=== PATIENT | male | born 2000 | race Caucasian/White ===

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

== ENCOUNTER → 2022-03-24 | Outpatient (CLI) | payer BC, SELFPAY ==
[2022-03-24 15:59] LABS: Pathologist Comment May follow
[2022-03-24 16:39] LABS: RBC /Synovial Fluid 2.831 10^6/uL (0); Synovial Fld Mononuclear WBC # 2.506 10^3/ul; Synovial Fld Mononuclear WBC % 70.8 %; Synovial Fld Polynuclear WBC # 1.037 10^3/uL; Synovial Fld Polynuclear WBC % 29.2 %
[2022-03-24 16:42] LABS: AUTO B FLUID DILUENT BKGD CT WBC <0.1 RBC <0.01 (W<.1,R<.01); Appearance /Synovial Fluid Turbid (CLEAR); Color / Synovial Fluid Red (Pale Yellow); Source- Body Fluid SYNOVIAL
[2022-03-24 17:34] LABS: Source / Synovial Fluid LEFT KNEE
[2022-03-24 17:41] LABS: Lymph 28 %; Monocyte /Synovial Fluid 38 %; Neutrophil 34 % (0-25)
[2022-03-24 17:42] LABS: Body Fluid QC Type(s) BF4Q,BF5Q
[2022-03-26 07:19] LABS: Pathologist Review Reviewed
== END | disposition home or self-care (01) ==
LOC: LABSPEC 15:51
PROVIDERS: PCP Family Medicine; Visit Provider Physician Assistant Surgical
DX: M25.562 Pain in left knee (principal)
CPT/HCPCS: 87015; 87070; 87075; 87101; 87116; 87205; 87206; 89050; 89051; 89060

== ENCOUNTER → 2022-05-31 | Outpatient (CLI) | payer BC, SELFPAY ==
[2022-05-31 08:17] LABS: Erythrocyte Sedimentation Rate 5 mm/hr (0-20)
== END | disposition home or self-care (01) ==
LOC: LAB 07:48
PROVIDERS: PCP Family Medicine; Referring Provider Internal Medicine Rheumatology; Visit Provider Internal Medicine Rheumatology
DX: M79.18 Myalgia, other site (principal)
CPT/HCPCS: 36415; 85652

== ENCOUNTER → 2022-12-11 | Outpatient (CLI) | payer BC, SELFPAY ==
[2022-12-11 12:57] LABS: AST(SGOT) 20 U/L (15-37); Alanine Aminotransfer ALT/SGPT 31 U/L (16-61); Albumin, Serum 3.9 g/dL (3.2-5.0); Alkaline Phosphatase 58 U/L (45-117); Anion Gap 4 (5-15); BUN 17 mg/dL (7-18); BUN/Creat Ratio 18.9 RATIO (10-20); Calcium,Total 9.2 mg/dL (8.5-10.1); Chloride 108 mmol/L (98-107); Cholesterol 155 mg/dL (200); EST Glomerular Filtration Rate 112 mL/min (>60); Est Glom Filt Rate - Afr Amer 136 mL/min (>60); Globulin 3.8 g/dL (2.2-4.2); Glucose 98 mg/dL (74-106); High Density Lipoprotein 38 mg/dL; Potassium 4.1 mmol/L (3.5-5.1); Protein, Total 7.7 g/dL (6.4-8.2); Sodium Level 141 mmol/L (136-145); Triglycerides 64 mg/dL; Very Low Density Lipoprotein 13 mg/dL (5-40)
== END | disposition home or self-care (01) ==
PROVIDERS: PCP Family Medicine; Referring Provider Family Medicine; Visit Provider Family Medicine
DX: Z00.00 Encounter for general adult medical examination without abnormal findings (principal)
CPT/HCPCS: 36415; 80053; 80061; 83036

== ENCOUNTER → 2023-10-27 | Outpatient (CLI) | payer BC, SELFPAY ==
--- OUTSIDE RECORDS SUMMARY | 2023-10-27 08:45 | XMS RPT_ITS | CCD ---
Author Name Unknown Address [address] [place] [address] Organization [facility] Care Team Providers Care Director Of Automation Name Role Phone Unknown, Referring Provider Unavailable Unav ailable Kiet TAYLOR Attending Unavailable Kiet TAYLOR Referring Unavailable AICHA HIGHTOWER Primary Care Unavailable AICHA HIGHTOWER Primary Care Unavailable SELF, SELF Referring Unavailable Kiet TAYLOR Attending Unavailable Aicha Hightower DO Primary Care Provider Medications Current Medications Medication Drug Class(es) Dates Sig (Normalized) Sig (Original) 24 hr amphetamine aspartate 7.5 mg / amphetamine sulfate 7.5 mg / dextroamphetamine saccharate 7.5 mg / dextroamphetamine sulfate 7.5 mg extended release oral capsule (2 sources) Central Nervous System Stimulant Start: 03-25-2021 take 1 capsule by mouth once daily in the morning Adderall XR 30 MG Cap SR 24HR take 1 capsule by mouth every morning if needed 0 03/25/2021 Active Problems Active Problems Problem Classification Problem Date Documented Da te Episodic/Chronic Other non-traumatic joint disorders (4 sources) Hip pain; Translations: [Pain in joint, pelvic region and thigh] Episodic Past or Other Problems Problem Classification Problem Date Documented Da te Episodic/Chronic Other non-traumatic joint disorders (2 sources) Pain in right hip joint; Translations: [Pain in right hip] Episodic Results Test Name Value Interpretation Reference Range Facil ity Vital Signs Date Time Vital Sign Value Performing Clinician Faci lity 04-09-2021 11:11-0400 Body height 167.6 cm Kiet Taylor MD Work Phone: [facility] 04-09-2021 11:11-0400 Body mass index (BMI) [Ratio] 25.34 kg/m2 Kiet Taylor MD Work Phone: [facility] 04-09-2021 11: Body weight 71.22 kg Kiet Taylor MD Work Phone: [facility] Encounters Encounter Date Encounter Type Care Provider Facility Start: 04-09-2021 ambulatory Kiet TAYLOR Faci lity:[facility] Start: 04-09-2021 End: 04-09-2021 Subsequent hospital visit by physician Kiet Taylor MD Work Phone: [facility] [place] Procedures Date Procedure Procedure Detail Performing Clinician Start: 04-09-2021 Radex hip unilateral with pelvis 2-3 views Kiet Taylor MD Work Phone: Plan of Treatment Date Care Activity Detail Author Start: 05-15-2021 Influenza vaccination INFLUENZA VACC INE (#1) [facility] Start: 03-22-2021 NPV, Provider: Rashard Dinero, Status: Pen, Time: 10:00 AM NPV, Provider: Rashard Dinero, Status: Pen, Time: 10:00 AM YH-Qkyeqpmmnbyx-Eck well 5100 Work Phone: Start: 2020 Third diphtheria, te tanus and acellular pertussis (DTaP) vaccination TDAP (ADULT) [facility] Start: 2019 Tetanus vaccination TETANUS [facility] Start: 2016 HIV screening HIV SCREENING DISCUSSION [facility] Start: 2013 COVID-19 VACCINE (1) COVID-19 VACCIN E (1) [facility] Start: 2012 Vaccination for rick n papillomavirus HPV VACCINE ADOL (1 - Male 2-dose series) [facility] Start: 2001 Hepatitis C antibody , confirmatory test HEPATITIS C VIRUS SCREENING [facility] Immunizations Immunization Date Immunization Notes Care Provider Fa cility 07-14-2020 Influenza, injectabl e, Madin Tricia Canine Kidney, preservative free, quadrivalent Rashard Dinero MD Work Phone: CS-Mvgmgtqegaqm-Ep lwell 5100 Work Phone: 07-14-2020 pneumococcal polysaccharide vaccine, 23 valent Rashard Dinero MD Work Phone: SV-Ztyjafyxcten-Al lwell 5100 Work Phone: 12-28-2018 hepatitis A vaccine, pediatric/adolescent dosage, 2 dose schedule Rashard Dinero MD Work Phone: AC-Yypdhglbnyub-Qu lwell 5100 Work Phone: 12-28-2018 Human Papillomavirus 9-valent vaccine Rashard Dinero MD Work Phone: CC-Agevuvyptcwb-Rm lwell 5100 Work Phone: 12-28-2018 meningococcal B vacc ine, recombinant, OMV, adjuvanted Rasahrd Dinero MD Work Phone: XD-Vwnrbszxujmi-Na lwell 5100 Work Phone: 07-29-2018 influenza, injectabl e, quadrivalent, preservative free Rashard Dinero MD Work Phone: SO-Ktvdyfcpwuox-Io lwell 5100 Work Phone: 03-11-2018 hepatitis A vaccine, pediatric/adolescent dosage, 2 dose schedule Rashard Dinero MD Work Phone: FR-Oqidxlfffaci-Dh lwell 5100 Work Phone: 03-11-2018 Human Papillomavirus 9-valent vaccine Rashard Dinero MD Work Phone: GT-Wlsdlfqqkcmf-Yq lwell 5100 Work Phone: 03-11-2018 meningococcal polysaccharide (groups A, C, Y and W-135) diphtheria toxoid conjugate vaccine (MCV4P) Rashard Dinero MD Work Phone: UK-Blvtlsqnwfoh-Lg lwell 5100 Work Phone: 06-28-2016 influenza, injectabl e, quadrivalent, preservative free Rashard Dinero MD Work Phone: ND-Fexlogffvhem-Tx lwell 5100 Work Phone: 07-24-2015 influenza, injectabl e, quadrivalent, preservative free Rashard Dinero MD Work Phone: GL-Mxumrbnrffja-Np lwell 5100 Work Phone: 07-24-2015 pneumococcal polysaccharide vaccine, 23 valent Rashard Dinero MD Work Phone: GX-Uumynoxuffkh-Ih lwell 5100 Work Phone: 06-16-2013 influenza, seasonal, injectable Rashard Dinero MD Work Phone: OR-Eoyzydrrqzbv-Od lwell 5100 Work Phone: 05-31-2012 influenza virus vacc ine, live, attenuated, for intranasal use Rashard Dinero MD Work Phone: PK-Oekjxmlbbwdu-Wl lwell 5100 Work Phone: 05-31-2012 meningococcal polysaccharide (groups A, C, Y and W-135) diphtheria toxoid conjugate vaccine (MCV4P) Rashard Dinero MD Work Phone: WS-Kcpnjfwinnem-Yd lwell 5100 Work Phone: 05-31-2012 tetanus toxoid, redu yen diphtheria toxoid, and acellular pertussis vaccine, adsorbed Rashard Dinero MD Work Phone: YC-Pehjurfkdctf-Vu lwell 5100 Work Phone: 07-14-2011 influenza virus vacc ine, live, attenuated, for intranasal use Rashard Dinero MD Work Phone: VW-Tiiigkspdrfp-Tr lwell 5100 Work Phone: 06-10-2010 influenza virus vacc ine, live, attenuated, for intranasal use Rashard Dinero MD Work Phone: QK-Bmmmieahscqg-Su lwell 5100 Work Phone: 06-11-2006 varicella virus vaccine Robe rt Florian Dinero MD Work Phone: IF-Phxclezttlks-Rv lwell 5100 Work Phone: 05-22-2005 diphtheria, tetanus toxoids and acellular pertussis vaccine, unspecified formulation Rashard Dinero MD Work Phone: XD-Znvmjvvkbkst-Cc lwell 5100 Work Phone: 05-22-2005 measles, mumps and rubella virus vaccine Rashard Dinero MD Work Phone: UC-Nfsobzgmbdut-Ko lwell 5100 Work Phone: 05-22-2005 poliovirus vaccine, inactivated Rashard Dinero MD Work Phone: BJ-Wscuabiicgyq-Mg lwell 5100 Work Phone: 03-29-2003 pneumococcal conjuga te vaccine, 7 valent Rashard Dinero MD Work Phone: VD-Hxynyqmzfbpt-Ev lwell 5100 Work Phone: 09-29-2002 influenza virus vacc ine, whole virus Rashard Dinero MD Work Phone: IC-Sorfkegecvop-Kz lwell 5100 Work Phone: 06-29-2002 diphtheria, tetanus toxoids and acellular pertussis vaccine, unspecified formulation Rashard Dinero MD Work Phone: PS-Ulclissbpdxe-Qb lwell 5100 Work Phone: 06-29-2002 varicella virus vaccine Eric Dinero MD Work Phone: KO-Vzjnsafulidk-Uz lwell 5100 Work Phone: 06-23-2002 haemophilus influenz ae type b vaccine, PRP-T conjugate Rashard Dinero MD Work Phone: RL-Srvgfpajxbtz-Gd lwell 5100 Work Phone: 03-29-2002 hepatitis B vaccine, pediatric or pediatric/adolescent dosage Rashard Dinero MD Work Phone: MH-Zczhmbrzlnmy-Fq lwell 5100 Work Phone: 03-29-2002 measles, mumps and rubella virus vaccine Rashard Dinero MD Work Phone: UI-Dchiexzlfclg-Vx lwell 5100 Work Phone: 2001 poliovirus vaccine, inactivated Rashard Dinero MD Work Phone: ZY-Aqlnscboduxe-Ob lwell 5100 Work Phone: 2001 diphtheria, tetanus toxoids and acellular pertussis vaccine, unspecified formulation Rashard Dinero MD Work Phone: NO-Pearfgtopgtn-Ld lwell 5100 Work Phone: 2001 haemophilus influenz ae type b vaccine, PRP-T conjugate Rashard Dinero MD Work Phone: XG-Esfqgtzodlxq-Ie lwell 5100 Work Phone: 2001 pneumococcal conjuga te vaccine, 7 valent Rashard Dinero MD Work Phone: AR-Njzagevopmya-Ih lwell 5100 Work Phone: 2001 diphtheria, tetanus toxoids and acellular pertussis vaccine, unspecified formulation Rashard Dinero MD Work Phone: BW-Ibupxofilgfu-Hm lwell 5100 Work Phone: 2001 haemophilus influenz ae type b vaccine, PRP-T conjugate Rashard Dinero MD Work Phone: RA-Rppjljpsyaih-Nj lwell 5100 Work Phone: 2001 pneumococcal conjuga te vaccine, 7 valent Rashard Dinero MD Work Phone: ZL-Dpciyentlzvz-Xm lwell 5100 Work Phone: 2001 poliovirus vaccine, inactivated Rashard Dinero MD Work Phone: HN-Eqsbxuuoahnk-Ff lwell 5100 Work Phone: 2001 diphtheria, tetanus toxoids and acellular pertussis vaccine, unspecified formulation Rashard Dinero MD Work Phone: XY-Kaufgndhmdwv-Ro lwell 5100 Work Phone: 2001 haemophilus influenz ae type b vaccine, PRP-T conjugate Rashard Dinero MD Work Phone: IS-Dmiavrezyorw-Eb lwell 5100 Work Phone: 2001 hepatitis B vaccine, pediatric or pediatric/adolescent dosage Rashard Dinero MD Work Phone: SS-Yjxkitmvrvvq-Zz lwell 5100 Work Phone: 2001 pneumococcal conjuga te vaccine, 7 valent Rashard Dinero MD Work Phone: OI-Opudgxwmtfut-Pa lwell 5100 Work Phone: 2001 poliovirus vaccine, inactivated Rashard Dinero MD Work Phone: GG-Esykqblnwnvf-Mb lwell 5100 Work Phone: 2001 hepatitis B vaccine, pediatric or pediatric/adolescent dosage Rashard Dinero MD Work Phone: TN-Dngrjxwzatfe-Dv lwell 5100 Work Phone: Payers Date Payer Category Payer Unknown [id number] 2005 Unknown KAROLINE RAMEY O PPO POS [id number] 2005-Present [address] [place] [address] [id number] 2001 Unknown [id number] 2001 Unknown [id number] Unknown SHERRIEM Social History Date Type Detail Facility Start: 04-09-2021 Tobacco smoking stat us NHIS Never smoker [facility] Start: 04-09-2021 Tobacco use and exposure Never used [facility] Start: 04-09-2021 Alcohol intake Ex-drinker (finding) [facility] Start: 2001 Sex Assigned At Not on file O [facility] Exposure to SARS-CoV -2 (event) Not sure [facility] History of Present illness Narrative 04-09-2021 Kiet Taylor MD - 04/09/2021 10:40 AM Zaid Bae PA-C - 04/09/2021 10:40 AM EDSachi Miller LPN - 04/09/2021 10:40 AM EDT Note Date & Type Note Facility 04-09-2021 History of Present illness Narrative I have seen and evaluated the patient myself and agree with above assessment and plan from [facility] and edits as needed, has a chronic leg length discrepancy with 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 Refer [facility] bambi discuss and will call office to review further, discussed case with Dr Bar LIRIANO as well to confirm no plans for acetab osteotomy. CHIEF COMPLAINT Chief Complaint Patient presents with Right Hip - Pain Right hip pain for many years. Known leg length discrepancy. 6 months ago has gotten shoes to help correct this. Still with off/on lateral hip pain. Has completed PT in the past. HISTORY OF PRESENT ILLNESS Howard is a pleasant 21 y.o. male who presents with his mother today for evaluation of right hip. He is complaining of pain. The symptoms have been present for 6 month(s). The problem was a(n) insidious onset. The patient did have a specific injury/trauma. Patient noted slip and fall in winter which is when pain started. 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 Hardware has been removed. The pain is constant, moderate. The patient describes the pain as aching and throbbing. Pain is located deep and laterally. The patient has had physical therapy. The patient has not had injections in the hip. The patient has had prior hip or back surgery. Noted above. The following worsen the problem: Walking, running, sitting. The following improve the problem: Rest, APAP, NSAIDs. Numbness/tingling/focal weakness in the lower extremities no Nighttime pain no Mechanical symptoms of popping/locking/catching no Past Medical History: Diagnosis Date ADHD Autism No past surgical history on file. No Known Allergies Outpatient Medications Prior to Visit Medication Sig Dispense Refill Adderall XR 30 MG Cap SR 24HR take 1 capsule by mouth every morning if needed No facility-administered medications prior to visit. Social History Socioeconomic History Marital status: Single Spouse name: Not on file Number of children: Not on file Years of education: Not on file Highest education level: Not on file Occupational History Not on file Tobacco Use Smoking status: Never Smoker Smokeless tobacco: Never Used Vaping Use Vaping Use: Never used Substance and Sexual Activity Alcohol use: Not Currently Drug use: Not Currently Sexual activity: Not on file Other Topics Concern Not on file Social History Narrative Not on file Social Determinants of Health Financial Resource Strain: Difficulty of Paying Living Expenses: Food Insecurity: Worried About Running Out of Food in the Last Year: Ran Out of Food in the Last Year: Transportation Needs: Lack of Transportation (Medical): Lack of Transportation (Non-Medical): Physical Activity: Days of Exercise per Week: Minutes of Exercise per Session: Stress: Feeling of Stress : Social Connections: Frequency of Communication with Friends and Family: Frequency of Social Gatherings with Friends and Family: Attends Gn[employer] Services: Active Member of Clubs or Organizations: Attends Club or Organization Meetings: Marital Status: Intimate Partner Violence: Fear of Current or Ex-Partner: Emotionally Abused: Physically Abused: Sexually Abused: History reviewed. No pertinent family history. PMHx, PSHx, Meds, Allergies, SocHx and FamHx were reviewed in the chart and patient denies any additional hx pertinent to the current presenting condition/injury other than what's mentioned in the HPI above. Review of Symptoms: Pertinent items are noted in the HPI. Constitutional: negative for - chills, fever or night sweats Eye: Negative for eye irritation or eye pain ENT: Negative for cold symptoms, hearing problems or voice changes Respiratory: no cough, shortness of breath, or wheezing Cardiovascular: no chest pain or dyspnea on exertion GI: No abdominal pain, nausea or vomiting, or diarrhea Neurological: no TIA or stroke symptoms or headaches Musculoskeletal: Joint pain as documented in HPI Skin/ integumentary: no generalized rashes, no generalized erythema, no open lesions Endocrine: No feeling too hold or cold or increased thirst Hematology-Oncology: No swollen glands or easy bruising PHYSICAL EXAMINATION: Body mass index is 25.34 kg/m . Wt Readings from Last 3 Encounters: 04/09/21 71.2 kg (157 lb) Ht Readings from Last 3 Encounters: 04/09/21 1.676 m (5' 6 ) There were no vitals filed for this visit. Past Medical History: Diagnosis Date ADHD Autism Outpatient Medications Prior to Visit Medication Sig Dispense Refill Adderall XR 30 MG Cap SR 24HR take 1 capsule by mouth every morning if needed No facility-administered medications prior to visit. Well developed, well nourished patient in no acute distress. Alert and oriented times three, affect appropriate. Gait: Antalgic yes Trendelenburg no Back: Flexion, Extension, Lateral and Rotational Movements Non-TTP over Lumbar and SI regions. Negative SLR bilaterally. Knee: Active range of motion is painless. Non-tender to palpation. Hip ROM: Right Hip ROM: IR = 30 ER = 40 Extension = Normal Flexion = 110 FREDERICK = 8 cm Adduction = Normal Abduction = Normal Left Hip ROM: IR = 15 ER = 45 Extension = Normal Flexion = Normal FREDERICK = 4 cm Adduction = Normal Abduction = Normal Right Hip PAIN: SLR: Yes Log Roll: No Flexion no Flexion/IR yes Yuridia/Scour yes Psoas yes Dial no Posterior Impingement no Trochanter no Piriformis no Hernia pain no Adductor no CMS Intact yes Left Hip PAIN: SLR: No Log Roll: No Flexion no Flexion/IR no Yuridia/Scour no Psoas no Dial no Posterior Impingement no Trochanter no Piriformis pain no Hernia pain no Adductor no CMS intact yes Radiographs: 3 images obtained and independently reviewed today. Cam morphology noted. Coxa vara deformity. No acute osseous abnormalities. Postsurgical changes noted within femoral neck. Joint space well preserved without signs of OA. ~34 degrees CEA. MRI does show labral pathology/tearing. 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 The diagnosis and treatment options were discussed with him in detail today. We reviewed the xrays/MRI from today. The decision was made to go forward with discussed IA injection, patient would like to hold off for now. Referral to Dr. Henriquez at [facility] to for discussion on femoral neck osteotomy for varus correction combo case. Follow up via telephone once evaluation completed We will see the patient back after visit with Dr. Henriquez for a follow up appointment with to reassess her/his condition and discuss surgical options if appropriate. If there are any questions prior to this, the patient was instructed to contact the office. I spent over 45 minutes reviewing records, evaluating imaging, performing the physical exam, conducting the patient interview, documenting clinical information, and discussing/ ordering treatment options with the patient with greater than 50% of the time spent in counseling and coordination of care. Derek Bae PA-C ROS: No fever or chills. No rashes. No difficulty breathing, cough, wheeze or shortness of breath. No chest pain, pressure or palpitations. Normal bowel movements. Normal urination. No numbness or tingling. Right hip pain. Left knee pain. documented in this encounter [facility] Evaluation note Note Date & Type Note Facility documented in this encounter [facility] Evaluation note Note Date & Type Note Facility documented in this encounter [facility] History of Present illness Narrative Note Date & Type Note Facility History of Present illness Narrative 21-year-old male presenting with a chief complaint of right hip pain. This is a 21-year-old male who likely has a history of right hip slipped capital femoral epiphysis injury in the past. He has a shortened right limb. He has had persistent and consistent right sided hip and groin pain for several years. He was evaluated in [place] and sent to de for definitive management. He has some evidence of labral tearing on MRI. His pain is now gone to the point where it affects his daily living and activities on a daily basis and functional movements of his hip as well as walking. TQ-Vndpcfmwptoj-Tbzunzl 5100 Work Phone: History of Present illness Narrative Note Date & Type Note Facility History of Present illness Narrative 21-year-old male presenting with a chief complaint of right hip pain. This is a 21-year-old male who likely has a history of right hip slipped capital femoral epiphysis injury in the past. He has a shortened right limb. He has had persistent and consistent right sided hip and groin pain for several years. He was evaluated in [place] and sent to de for definitive management. He has some evidence of labral tearing on MRI. His pain is now gone to the point where it affects his daily living and activities on a daily basis and functional movements of his hip as well as walking. OY-Vggghknbjhcl-Esskyu [address] Work Phone: Reason for referral (narrative) Consultation (Routine) - New Request Note Date & Type Note Facility Referral ID Status Reason Start Date Expiration Date V isits Requested Visits Authorized [id number] New Request 04/09/2021 05/04/2022 1 1 * Diagnostic X-Ray (Routine) - New Request Specialty Diagnoses / Procedures Referred By Rolf galvan Referred To Contact Diagnoses Right hip pain Procedures XR HIP RIGHT 2 VIEWS Kiet Taylor MD [address] [place] [address] Referral ID Status Reason Start Date Expiration Date V isits Requested Visits Authorized [id number] New Request 04/04/2021 04/29/2022 1 1 [facility] Summary Purpose Family History No Family History Records FoundNo Family History Records FoundNo Family History Records FoundNo Family History Records FoundNo Family History Records Found Advance Directives No Advanced Directives Records FoundNo Advanced Directives Records FoundNo Advanced Directives Records FoundNo Advanced Directives Records FoundNo Advanced Directives Records Found Reason for Referral Specialty Diagnoses / Procedures Referred By Rolf t Referred To Contact Diagnoses Right hip pain Procedures XR HIP RIGHT 2 VIEWS Kiet Taylor MD [address] [place] [address] Referral ID Status Reason Start Date Expiration Date V isits Requested Visits Authorized [id number] New Request 04/04/2021 04/29/2022 1 1 Additional Source Comments (unrecognized sect ion and content) No Status Records FoundNo Status Records FoundNo Status Records FoundNo Status Records FoundNo Status Records Found INFORMATION SOURCE (unrecogn ized section and content) DATE CREATED AUTHOR AUTHOR'S ORGANIZ ATION 03/23/2021 [facility] DATE CREATED AUTHOR AUTHOR'S ORGANIZ ATION 03/28/2021 [facility] DATE CREATED AUTHOR AUTHOR'S ORGANIZ ATION 04/11/2021 [facility] DATE CREATED AUTHOR AUTHOR'S ORGANIZ ATION 05/04/2021 [facility] Reason for Visit (unrecogniz ed section and content) Referral ID Status Reason Start Date Expiration Date V isits Requested Visits Authorized [id number] New Request 04/04/2021 04/29/2022 1 1 Reason Comments Pain Right hip pain for m any years. Known leg length discrepancy. 6 months ago has gotten shoes to help correct this. Still with off/on lateral hip pain. Has completed PT in the past. Care Teams (unrecognized sec tion and content) Director Of Automation Relationship Specialty Start Date End Date Aicha Hightower DO [address] [address] PCP - General Family Medicine 03/27/21 FOR RECORDS PERTAINING TO PATIENTS WHO ARE OR HAVE BEEN ENROLLED IN A CHEMICAL DEPENDENCY/SUBSTANCEABUSE PROGRAM, SOME INFORMATION MAY BE OMITTED. This clinical summary was aggregated from multiple sources. Caution should be exercised in using it in the provision of clinical care. This summary normalizes information from multiple sources, and as a consequence, information in this document may materially change the coding, format and clinical context of patient data. In addition, data may be omitted in some cases. CLINICAL DECISIONS SHOULD BE BASED ON THE PRIMARY CLINICAL RECORDS. [facility]. provides no warranty or guarantee of the accuracy or completeness of information in this document.
[2023-10-27 12:38] LABS: Erythrocyte Sedimentation Rate 9 mm/hr (0-20)
[2023-10-27 12:47] LABS: Rheumatoid Factor < 10.0 IU/mL (<15)
[2023-10-28 13:07] LABS: ANTINUCLEAR ANTIBODIES DIRECT Positive (Negative); Anti-Centromere B Ab <0.2 AI (0.0-0.9); Anti-Chromatin 0.2 AI (0.0-0.9); Anti-Jo <0.2 AI (0.0-0.9); Anti-Scleroderma-70 AB 0.2 AI (0.0-0.9); Anti-dsDNA Ab 3 IU/mL (0-9); RNP Ab 1.1 AI (0.0-0.9); SJOGREN'S Anti-SS-A test < 0.2 AI (0.0-0.9); SJOGREN'S Anti-SS-B test < 0.2 AI (0.0-0.9); Smith Ab <0.2 AI (0.0-0.9)
[2023-11-03 12:16] LABS: CCP IgG Antibodies 8 units (0-19); HLA B27 Positive (.)
== END | disposition home or self-care (01) ==
LOC: BFHLAB 08:24
PROVIDERS: PCP Family Medicine; Visit Provider Family Medicine
DX: M25.50 Pain in unspecified joint (principal); H20.9 Unspecified iridocyclitis
CPT/HCPCS: 36415; 81374; 85652; 86038; 86140; 86200; 86225; 86235; 86431

== ENCOUNTER → 2024-01-07 | Outpatient (CLI) | payer BC, SELFPAY ==
[2024-01-07 20:03] LABS: Hepatitis C Antibody Non-Reactive (Nonreactive)
[2024-01-09 21:08] LABS: HCV Quant. RNA PCR HCV Not Detected IU/mL (.)
== END | disposition home or self-care (01) ==
LOC: BFHLAB 16:26
PROVIDERS: PCP Family Medicine; Referring Provider Family Medicine; Visit Provider Family Medicine
DX: R76.8 Other specified abnormal immunological findings in serum (principal)
CPT/HCPCS: 36415; 86803; 87522

== ENCOUNTER → 2025-07-24 | Outpatient (CLI) | payer BC, SELFPAY ==
--- OUTSIDE RECORDS SUMMARY | 2025-07-24 07:05 | XMS RPT_ITS | CCD ---
Author Organization [facility] ion [facility] Care Team Providers Care Land Acquisition Manager Name Role Phone Unknown, Referring Provider Unavailable Unav ailable Kiet TAYLOR Attending Unavailable Kiet TAYLOR Referring Unavailable AICHA HIGHTOWER Primary Care Unavailable AICHA HIGHTOWER Primary Care Unavailable SELF, SELF Referring Unavailable Kiet TAYLOR Attending Unavailable Aicha Hightower DO Primary Care Provider Unavailable Primary Care Provider UnavailSTEPHANIE Barrientos Referring UnavailSANDRA Null Attending Unavailable SANDRA GILLETTE Referring Unavailable HOSEA AC Attending Unavailable Aicha Hightower Attending Unavailable Aicha Hightower Primary Care Unavailable Medications Current Medications Medication Drug Class(es) Dates Sig (Normalized) Sig (Original) amoxicillin 50 mg/ml / clavulanate 12.5 mg/ml oral suspension (5 sources) Penicillin-class Antibacterial Start: 09-27-2014 amoxicillin-cla vulanate (AUGMENTIN) 250-62.5 mg/5 mL suspension Take 2 tsp 3x/day for 10 days 300 mL 0 09/27/2014 Active 24 hr amphetamine aspartate 7.5 mg / amphetamine sulfate 7.5 mg / dextroamphetamine saccharate 7.5 mg / dextroamphetamine sulfate 7.5 mg extended release oral capsule (12 sources) Central Nervous System Stimulant Start: 03-25-2021 take 1 capsule by mouth once daily in the morning Adderall XR 30 MG Cap SR 24HR take 1 capsule by mouth every morning if needed 0 03/25/2021 Active Start: 11-13-2013 Dextroamphetam ine-Amphetamine (Adderall 15 Mg Tablet) 15 MG tablet Active 30 MG PO DAILY November 13, 2013 1:00am ONLY TAKEN DURING SCHOOL YEAR vitamin K1 (5 sources) Warfarin Reversal Agent, Vitamin K Start: 06-13-2019 Phytonadione (Vit K1 ) (Bulk) Active 500 GM MC DAILY June 12, 2019 11:00pm Start: 06-13-2019 Phytonadione ( Vit K1) (Bulk) Active 500 GM MC DAILY June 13, 2019 12:00am Problems Problem Classification Problem Date Documented Date Episodic/Chronic Other acquired deformities (3 sources) Leg length inequality; Translations: [Unequal limb length (acquired), unspecified site] 02-05-2024 Episodic Other acquired deformities (2 sources) Unequal limb length (acquired), unspecified site; Translations: [Leg length discrepancy] Onset: 02-05-2024 Episodic Other non-traumatic joint disorders (6 sources) Hip pain; Translations: [Pain in joint, pelvic region and thigh] 02-02-2024 Episodic Other non-traumatic joint disorders (4 sources) Pain in right hip joint; Translations: [Pain in right hip] Episodic Other non-traumatic joint disorders (1 source) Pain in right hip; Translations: [Pain in right hip] Onset: 02-05-2024 Episodic Other non-traumatic joint disorders (1 source) Pain in left hip; Translations: [Pain in left hip] Onset: 02-05-2024 Episodic Other screening for suspected conditions (not mental disorders or infectious disease) (5 sources) Coag./bleeding tests abnormal; Translations: [Abnormal coagulation profile] 06-06-2019 Episodic Residual codes; unclassified (1 source) Genetic susceptibility to other disease; Translations: [Genetic susceptibility to other disease] Onset: 07-03-2025 Episodic Results Test Name Value Interpretation Reference Range Facility [facility] 02-05-2024 CNOV Office Visit (ORTHMN ) HOWARD AGUILAR ([id number]) 2 M Date Time Provider Department 02/05/24 10:00 AM MESKO, SANDRA W ORTHMN During your visit today, we recorded the following information about you: Weight Height 81.6 kg 1.702 m Sandra Gillette MD 02/05/2024 11:24 AM Signed CONSULT ORTHOPAEDIC: HIP PRIMARY CARE PHYSICIAN: No primary care provider on file. REFERRING PROVIDER: No referring provider defined for this encounter. ASSESSMENT AND PLAN Impression: Right Hip Moderate Degenerative Osteoarthritis, Post-Traumatic Leg Length Discrepancy, Right Leg [place] than Left Long orthopedic history consisting a leg length discrepancy since . He has undergone multiple orthopedic surgeries. When he was in 6th grade he had a fall out of a tree and suffered an Achilles tendon rupture. He underwent repair at that time. While in rehab he complained of right hip pain and was found to have a missed femoral neck fracture. He underwent percutaneous fixation and later had removal of his hardware. He also describes that due to his limb length discrepancies he did have a plate placed in the contralateral (left) knee. He thinks that he was in seventh or eighth grade when this happened. He has also had a left knee scope procedure. Referred by Dr. Hart for Bilateral Hip Pain Pain location: Worst on the left hip laterally. He will also get pain down his thighs. Right hip pain will wake him up at night with pain - once in a while. Pain has been progressive over the past 5 years. They have seen surgerons 2 years ago and then decided against intervention at that time. They present today to reevaluate their options. He recently saw Dr. Hart in [place] [facility]. He referred to Dr. Gooden for discussion of possible hip resurfacing. He does wear a custom shoe for his limp length discrepancy which does help. Activities creating pain: Working, exercise, walking Therapy to date - Ice or Heat: ice, heat, soaking OTC/Rx Medications (Topical/PO): ibuprofen helps takes the edge off, tylenol Brace/Splint: none Assist Device: none Physical Therapy: none recently Injections: None in the past Surgery: Last hip surgery was 8 years ago on the right hip. Left hip - no surgeries. 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 He has 141 degree femoral neck angle on the left, 125 on the right. SS Sit - [address] - 41 deg KEMI/PT st - back 3 deg Summary: Howard is sent to me today for a hip resurfacing consult. Interestingly, all of his pain is on the LEFT side and is over the greater trochanteric bursitis. I do believe that this pain is large because of trochanteric bursitis. He has a completely benign right intra-articular hip exam. While he does have a cam lesion and clear varus in his neck with some subchondral sclerosis on the acetabular side, he has virtually no complaints historically or during his exam today regarding the right hip. Lying supine, he has at least a 3 cm limb length discrepancy, and his knee is at a different level on the right side as compared to the left. I believe that we probably can account for 7-10 mm of limb length discrepancy because of his varus neck, but I also believe that he has femoral length discrepancy as well. In my mind, we need to be objective about this, starting with mechanical axis views and the scanogram. I believe that an arthroplasty, whether a hip replacement or hip resurfacing, is not necessary given his lack of intra-articular symptoms and his young age of [age] years old. Rather, I think we should be exploring options surrounding limb lengthening. Today, this can be a minimally invasive approach with a magnetic growing nail, with a plan to lengthen him 80-100% of the delta difference. He does have a mild equinus contracture after multiple Achilles lengthenings on the right side, as well as varus neck. In order to prevent his toe from catching during swing through gait, as well as to account for the potential need of a hip replacement in the future that will not have a stem to match his extreme varus anatomy at present, I do not think lengthening him to the exact same length would make a lot of sense. This is an elective operation. I would rather have this done by one of my trauma partners who has trained in this technique. I will plan on getting him referred to Dr. Ac for a discussion. I spent a total of 45 minutes on the date of the service which included [id number] patient care, completing clinical documentation, obtaining and/or reviewing separately obtained history, performing a medica (more content not included)... Normal [facility] No Panel Informationon 02-04 Radiology Study observation (narrative) [facility] IMPRESSION: BIOMECHANICAL AXES AND LEG LENGTH ABOVE. 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 Otherwise unremarkable exam bilateral hips and pelvis. Assembler 1St Shift: [facility] Transcribe Date/Time: Feb 05 2024 10:44A Dictated by : LAVINIA ARNETT MD This examination was interpreted and the report reviewed and electronically signed by: LAVINIA ARNETT MD on Feb 05 2024 10:48AM EST DIVISION OF RADIOLOGY No Panel InformationOrdered By: [facility] Provider on 02-05-2024 [facility] XR Femur and Tibia Views for leg lengthon 02-05-2024 * * *Final Report* * * DATE OF EXAM: Feb 05 2024 11:30AM AOX 5215 - XR LEG FRONTAL SCANOGRAM LENGTHS / PROCEDURE REASON: Leg length discrepancy * * * * Physician Interpretation * * * * XR LEG FRONTL HIP-ANKL MECH AXIS XR LEG FRONTAL SCANOGRAM LENGTHS HISTORY: Leg length discrepancy TECHNIQUE: Single frontal radiograph, full length bilateral lower extremities in addition to scanogram bilateral legs with associated ruler for measurement. COMPARISON: 02/05/2024 hip x-rays RESULT: Remote postsurgical changes noted left distal femur with medial and lateral sided plate and screws at the condyles. Coxa varus noted right hip and coxa valgus noted left hip. Right lower extremity: Biomechanical axis is 4.3 degrees varus. Femur: 42.2 cm Tibia: 32.7 cm Total: 75.7 cm Left lower extremity: Biomechanical axis is 6.2 degrees varus. Femur: 44.4 cm Tibia: 33.1 cm Total: 78.2 cm DIVISION OF RADIOLOGY Provider, [facility] - 02/05/2024 * * *Final Report* * * DATE OF EXAM: Feb 05 2024 11:30AM AOX 5215 - XR LEG FRONTAL SCANOGRAM LENGTHS / PROCEDURE REASON: Leg length discrepancy * * * * Physician Interpretation * * * * [facility] LEG FRONTAL SCANOGRAM LENGTHS HISTORY: Leg length discrepancy TECHNIQUE: Single frontal radiograph, full length bilateral lower extremities in addition to scanogram bilateral legs with associated ruler for measurement. COMPARISON: 02/05/2024 hip x-rays RESULT: Remote postsurgical changes noted left distal femur with medial and lateral sided plate and screws at the condyles. Coxa varus noted right hip and coxa valgus noted left hip. Right lower extremity: Biomechanical axis is 4.3 degrees varus. Femur: 42.2 cm Tibia: 32.7 cm Total: 75.7 cm Left lower extremity: Biomechanical axis is 6.2 degrees varus. Femur: 44.4 cm Tibia: 33.1 cm Total: 78.2 cm IMPRESSION IMPRESSION: BIOMECHANICAL AXES AND LEG LENGTH ABOVE. Assembler 1St Shift[facility] Transcribe Date/Time: Feb 05 2024 12:42P Dictated by : LAVINIA ARNETT MD This examination was interpreted and the report reviewed and electronically signed by: LAVINIA ARNETT MD on Feb 05 2024 12:58PM [facility] XR HIP 2V AP/LAT RTon 2023 XR HIP 2V AP/LAT RT * * *Final Report* * * DATE OF EXAM: Feb 05 2024 9:24AM AOX 5280 - XR HIP 2V AP/LAT RT / PROCEDURE REASON: Pain in right hip * * * * Physician Interpretation * * * * X-RAYS BILATERAL HIPS X-RAYS RIGHT HIP HISTORY: History of right hip fracture (accession [id number]), Pelvic tilt (accession [id number]). Pain in right hip Pain in left hip TECHNIQUE: 2 views each hip with single AP view pelvis and direct seated and standing lateral views of the pelvis. COMPARISON: None RESULT: There is coxa varus noted right hip with associated ghost tracks. Appearance suggest prior pin fixation of femoral neck, likely related to slipped capital femoral epiphysis. Right hip joint space is maintained. Left hip joint space is maintained. Sacroiliac joints and pubic symphysis are maintained. Benign bone island noted in the left femoral neck. 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 Otherwise unremarkable exam bilateral hips and pelvis. Assembler 1St Shift: [facility] Transcribe Date/Time: Feb 05 2024 10:44A Dictated by : LAVINIA ARNETT MD This examination was interpreted and the report reviewed and electronically signed by: LAVINIA ARNETT MD on Feb 05 2024 10:48AM EST [id number] Normal [facility] XR HIP SONIA 5V PEL+ AP/LAT EA HIPon 02-05-2024 XR HIP SONIA 5V PEL+ AP/LAT EA HIP * * *Final Report* * * DATE OF EXAM: Feb 05 2024 9:24AM AOX 5353 - XR HIP SONIA 5V PEL+ AP/LAT EA HIP / PROCEDURE REASON: multiple diagnoses * * * * Physician Interpretation * * * * X-RAYS BILATERAL HIPS X-RAYS RIGHT HIP HISTORY: History of right hip fracture (accession [id number]), Pelvic tilt (accession [id number]). Pain in right hip Pain in left hip TECHNIQUE: 2 views each hip with single AP view pelvis and direct seated and standing lateral views of the pelvis. COMPARISON: None RESULT: There is coxa varus noted right hip with associated ghost tracks. Appearance suggest prior pin fixation of femoral neck, likely related to slipped capital femoral epiphysis. Right hip joint space is maintained. Left hip joint space is maintained. Sacroiliac joints and pubic symphysis are maintained. Benign bone island noted in the left femoral neck. 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 Otherwise unremarkable exam bilateral hips and pelvis. Assembler 1St Shift[facility] Transcribe Date/Time: Feb 05 2024 10:44A Dictated by : LAVINIA ARNETT MD This examination was interpreted and the report reviewed and electronically signed by: LAVINIA ARNETT MD on Feb 05 2024 10:48AM EST [id number] Normal [facility] XR HIP BILATERAL 5V PEL/AP/L AT EACH HIPon 02-05-2024 * * *Final Report* * * DATE OF EXAM: Feb 05 2024 9:24AM AOX 5353 - XR HIP SONIA 5V PEL+ AP/LAT EA HIP / PROCEDURE REASON: multiple diagnoses * * * * Physician Interpretation * * * * X-RAYS BILATERAL HIPS X-RAYS RIGHT HIP HISTORY: History of right hip fracture (accession [id number]), Pelvic tilt (accession [id number]). Pain in right hip Pain in left hip TECHNIQUE: 2 views each hip with single AP view pelvis and direct seated and standing lateral views of the pelvis. COMPARISON: None RESULT: There is coxa varus noted right hip with associated ghost tracks. Appearance suggest prior pin fixation of femoral neck, likely related to slipped capital femoral epiphysis. Right hip joint space is maintained. Left hip joint space is maintained. Sacroiliac joints and pubic symphysis are maintained. Benign bone island noted in the left femoral neck. DIVISION OF RADIOLOGY Provider, [facility] - 02/05/2024 * * *Final Report* * * DATE OF EXAM: Feb 05 2024 9:24AM AOX 5353 - XR HIP SONIA 5V PEL+ AP/LAT EA HIP / PROCEDURE REASON: multiple diagnoses * * * * Physician Interpretation * * * * X-RAYS BILATERAL HIPS X-RAYS RIGHT HIP HISTORY: History of right hip fracture (accession [id number]), Pelvic tilt (accession [id number]). Pain in right hip Pain in left hip TECHNIQUE: 2 views each hip with single AP view pelvis and direct seated and standing lateral views of the pelvis. COMPARISON: None RESULT: There is coxa varus noted right hip with associated ghost tracks. Appearance suggest prior pin fixation of femoral neck, likely related to slipped capital femoral epiphysis. Right hip joint space is maintained. Left hip joint space is maintained. Sacroiliac joints and pubic symphysis are maintained. Benign bone island noted in the left femoral neck. 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 Otherwise unremarkable exam bilateral hips and pelvis. Assembler 1St Shift: [facility] Transcribe Date/Time: Feb 05 2024 10:44A Dictated by : LAVINIA ARNETT MD This examination was interpreted and the report reviewed and electronically signed by: LAVINIA ARNETT MD on Feb 05 2024 10:48AM EST [facility] XR Hip - right AP and Latera sveta 02-05-2024 * * *Final Report* * * DATE OF EXAM: Feb 05 2024 9:24AM AOX 5280 - XR HIP 2V AP/LAT RT / PROCEDURE REASON: Pain in right hip * * * * Physician Interpretation * * * * X-RAYS BILATERAL HIPS X-RAYS RIGHT HIP HISTORY: History of right hip fracture (accession [id number]), Pelvic tilt (accession [id number]). Pain in right hip Pain in left hip TECHNIQUE: 2 views each hip with single AP view pelvis and direct seated and standing lateral views of the pelvis. COMPARISON: None RESULT: There is coxa varus noted right hip with associated ghost tracks. Appearance suggest prior pin fixation of femoral neck, likely related to slipped capital femoral epiphysis. Right hip joint space is maintained. Left hip joint space is maintained. Sacroiliac joints and pubic symphysis are maintained. Benign bone island noted in the left femoral neck. DIVISION OF RADIOLOGY Provider, [facility] - 02/05/2024 * * *Final Report* * * DATE OF EXAM: Feb 05 2024 9:24AM AOX 5280 - XR HIP 2V AP/LAT RT / PROCEDURE REASON: Pain in right hip * * * * Physician Interpretation * * * * X-RAYS BILATERAL HIPS X-RAYS RIGHT HIP HISTORY: History of right hip fracture (accession [id number]), Pelvic tilt (accession [id number]). Pain in right hip Pain in left hip TECHNIQUE: 2 views each hip with single AP view pelvis and direct seated and standing lateral views of the pelvis. COMPARISON: None RESULT: There is coxa varus noted right hip with associated ghost tracks. Appearance suggest prior pin fixation of femoral neck, likely related to slipped capital femoral epiphysis. Right hip joint space is maintained. Left hip joint space is maintained. Sacroiliac joints and pubic symphysis are maintained. Benign bone island noted in the left femoral neck. 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 Otherwise unremarkable exam bilateral hips and pelvis. Assembler 1St Shift: [facility] Transcribe Date/Time: Feb 05 2024 10:44A Dictated by : LAVINIA ARNETT MD This examination was interpreted and the report reviewed and electronically signed by: LAVINIA ARNETT MD on Feb 05 2024 10:48AM EST [facility] XR LEG FRONTAL SCANOGRAM PRIMO GTHSon 02-05-2024 XR LEG FRONTAL SCANOGRAM LENGTHS * * *Final Report* * * DATE OF EXAM: Feb 05 2024 11:30AM AOX 5215 - XR LEG FRONTAL SCANOGRAM LENGTHS / PROCEDURE REASON: Leg length discrepancy * * * * Physician Interpretation * * * * [facility] LEG FRONTAL SCANOGRAM LENGTHS HISTORY: Leg length discrepancy TECHNIQUE: Single frontal radiograph, full length bilateral lower extremities in addition to scanogram bilateral legs with associated ruler for measurement. COMPARISON: 02/05/2024 hip x-rays RESULT: Remote postsurgical changes noted left distal femur with medial and lateral sided plate and screws at the condyles. Coxa varus noted right hip and coxa valgus noted left hip. Right lower extremity: Biomechanical axis is 4.3 degrees varus. Femur: 42.2 cm Tibia: 32.7 cm Total: 75.7 cm Left lower extremity: Biomechanical axis is 6.2 degrees varus. Femur: 44.4 cm Tibia: 33.1 cm Total: 78.2 cm IMPRESSION: BIOMECHANICAL AXES AND LEG LENGTH ABOVE. Assembler 1St Shift: [facility] Transcribe Date/Time: Feb 05 2024 12:42P Dictated by : LAVINIA ARNETT MD This examination was interpreted and the report reviewed and electronically signed by: LAVINIA ARNETT MD on Feb 05 2024 12:58PM EST [id number] Normal [facility] X[facility]05-2024 XR LEG FRONTL HIP-ANKL ME[facility] AXIS * * *Final Report* * * DATE OF EXAM: Feb 05 2024 11:20AM AOX 5216 - XR LEG FRONTL HIP-ANKL [facility] AXIS / PROCEDURE REASON: Leg length discrepancy * * * * Physician Interpretation * * * * XR LEG FRONTL HIP-ANKL [facility] AXIS XR LEG FRONTAL SCANOGRAM LENGTHS HISTORY: Leg length discrepancy TECHNIQUE: Single frontal radiograph, full length bilateral lower extremities in addition to scanogram bilateral legs with associated ruler for measurement. COMPARISON: 02/05/2024 hip x-rays RESULT: Remote postsurgical changes noted left distal femur with medial and lateral sided plate and screws at the condyles. Coxa varus noted right hip and coxa valgus noted left hip. Right lower extremity: Biomechanical axis is 4.3 degrees varus. Femur: 42.2 cm Tibia: 32.7 cm Total: 75.7 cm Left lower extremity: Biomechanical axis is 6.2 degrees varus. Femur: 44.4 cm Tibia: 33.1 cm Total: 78.2 cm IMPRESSION: BIOMECHANICAL AXES AND LEG LENGTH ABOVE. Assembler 1St Shift: [facility] Transcribe Date/Time: Feb 05 2024 12:42P Dictated by : LAVINIA ARNETT MD This examination was interpreted and the report reviewed and electronically signed by: LAVINIA ARNETT MD on Feb 05 2024 12:58PM EST [id number] Normal [facility] XR Lower extremity - bilater al AP W standingon 02-05-2024 * * *Final Report* * * DATE OF EXAM: Feb 05 2024 11:20AM AOX 5216 - XR LEG FRONTL HIP-ANKL [facility] AXIS / PROCEDURE REASON: Leg length discrepancy * * * * Physician Interpretation * * * * XR LEG FRONTL HIP-ANKL [facility] AXIS XR LEG FRONTAL SCANOGRAM LENGTHS HISTORY: Leg length discrepancy TECHNIQUE: Single frontal radiograph, full length bilateral lower extremities in addition to scanogram bilateral legs with associated ruler for measurement. COMPARISON: 02/05/2024 hip x-rays RESULT: Remote postsurgical changes noted left distal femur with medial and lateral sided plate and screws at the condyles. Coxa varus noted right hip and coxa valgus noted left hip. Right lower extremity: Biomechanical axis is 4.3 degrees varus. Femur: 42.2 cm Tibia: 32.7 cm Total: 75.7 cm Left lower extremity: Biomechanical axis is 6.2 degrees varus. Femur: 44.4 cm Tibia: 33.1 cm Total: 78.2 cm DIVISION OF RADIOLOGY Provider, Lynn Elida ahn Rea - 02/05/2024 * * *Final Report* * * DATE OF EXAM: Feb 05 2024 11:20AM AOX 5216 - XR LEG FRONTL HIP-ANKL [facility] AXIS / PROCEDURE REASON: Leg length discrepancy * * * * Physician Interpretation * * * * XR LEG FRONTL HIP-ANKL [facility] AXIS XR LEG FRONTAL SCANOGRAM LENGTHS HISTORY: Leg length discrepancy TECHNIQUE: Single frontal radiograph, full length bilateral lower extremities in addition to scanogram bilateral legs with associated ruler for measurement. COMPARISON: 02/05/2024 hip x-rays RESULT: Remote postsurgical changes noted left distal femur with medial and lateral sided plate and screws at the condyles. Coxa varus noted right hip and coxa valgus noted left hip. Right lower extremity: Biomechanical axis is 4.3 degrees varus. Femur: 42.2 cm Tibia: 32.7 cm Total: 75.7 cm Left lower extremity: Biomechanical axis is 6.2 degrees varus. Femur: 44.4 cm Tibia: 33.1 cm Total: 78.2 cm IMPRESSION IMPRESSION: BIOMECHANICAL AXES AND LEG LENGTH ABOVE. Assembler 1St Shift: [facility] Transcribe Date/Time: Feb 05 2024 12:42P Dictated by : LAVINIA ARNETT MD This examination was interpreted and the report reviewed and electronically signed by: LAVINIA ARNETT MD on Feb 05 2024 12:58PM EST [facility] Basophil percentageOrdered B y: Aicha Hightower on 01-07-2024 Basophil percentage TNP [facility] Comment on above: Test not performed No Panel InformationOrdered By: Aicha Hightower on 01-07-2024 Addendum Document Comment . [facility] Comment on above: The quantitative ran ge of this assay is 15 IU/mL to 100million IU/mL.Performed at: [address] [id number] Director: Raul Estrada MD, Phone: [phone] Hepatitis C Antibody Non-Reactive Nonreactive [facility] Comment on above: Non Reactive: < 0.8 Equivocal: >/= 0.8 to < 1.0 Reactive: >/= 1.0The CDC requires that a reactive/equivocal HCV antibody result be sent out for confirmation. HCV Quant by PCR testing. Serum or plasma hepatitis C virus RNA measurement by probe and target amplification mOrdered By: Aicha Hightower on 01-07-2024 HCV RNA BRIAN+probe Qn Not detected . [facility] Basophil percentageOrdered B y: Aicha Hightower on 10-27-2023 Basophil percentage < 10.0 IU/mL <15 [facility] Erythrocyte sedimentation ra teOrdered By: Aicha Hightower on 10-27-2023 ESR (Bld) [Velocity] 9 mm/h 0-20 [facility] No Panel InformationOrdered By: Aicha Hightower on 10-27-2023 Anti-Nuclear Antibody Screen Positive Negative [facility] C-Reactive Protein Extended Range 10.20 mg/L 0.0-3.0 [facility] Comment on above: C-Reactive Protein ( CRP) provides useful information for thediagnosis, therapy and monitoring of inflammatory processesand associated diseases. For the evaluation of Relative Riskfor Cardiovascular Disease, a High Sensitivity CRP (HSCRP)should be ordered. Centromere B Antibody <0.2 AI 0.0-0.9 [facility] OXANA-1 Antibody <0.2 AI 0.0-0.9 [facility] TOY ASSEMBLER Antibody 1.1 AI 0.0-0.9 [facility] SM Antibody <0.2 AI 0.0-0.9 [facility] SS-A/Ro IgG Antibody < 0.2 AI 0.0-0.9 [facility] SS-B/La IgG Antibody < 0.2 AI 0.0-0.9 [facility] Serum DNA double strand anti body assay (units/volume)Ordered By: Aicha Hightower on 10-27-2023 DNA double strand Ab Qn (S) 3 [IU]/mL 0-9 [facility] Comment on above: Negative <5 Equivoca l 5 - 9 Positive >9 Serum Scl-70 antibody assay (units/volume)Ordered By: Aicha Hightower on 10-27-2023 SCL-70 extractable nuclear Ab Qn (S) 0.2 AI 0.0-0.9 [facility] Serum cyclic citrullinated p eptide IgG antibody assay (units/volume)Ordered By: Aicha Hightower on 10-27-2023 Cyclic citrullinated peptide IgG Qn 8 units 0-19 [facility] Comment on above: Negative <20 Weak po sitive 20 - 39 Moderate positive 40 - 59 Strong positive >59Performed at: 2[facility] [id number] [place], [place] [id number] Director: Lona Andino PhD, Phone: [phone] at: [address] [id number] Director: Justo Lynch PhD, Phone: [phone] Thin prep Papanicolaou smear with manual screeningOrdered By: Aicha Hightower on 10-27-2023 Thin prep Papanicolaou smear with manual screening Positive . [facility] Comment on above: HLA-B*27 PositiveThi s patient is positive for an HLA-B*27 allele that isassociated with spondyloarthropathies. This procedure rulesout the B*27:06 and 27:09 alleles, which the literaturesuggests are not associated with spondyloarthropathies.There are several very rare HLA allele that are not ruledout by this assay that may result in a false positive.Clinical correlation is recommended.B27 allele interpretation for all loci based on IMGT/HLAdatabase version 3.51.0This test was developed and its performance characteristicsdetermined by [employer]. It has not been cleared or approvedby the Food and Drug Administration.[facility] CLIA ID Number [id number] test was performed using Polymerase Chain Reaction(PCR) and Sequence Specific Oligonucleotide Probes (SSOP)technique. Sequence Based Typing (SBT) may be used as asupplemental method when necessary.If you have questions, please call [facility] customer serviceat or email at [email or web address]. Basophil percentageOrdered B y: Dr. Hightower on 12-11-2022 Bilirubin [Mass/Vol] 0.40 mg/dL 0.20-1.00 [facility] Comment on above: For patients on eltr ombopag therapy, use of Dimension [place] TBIL is not recommended. Chloride [Moles/Vol] 108 mmol/L 98-107 [facility] Cholesterol [Mass/Vol] 155 mg/dL <200 [facility] Comment on above: <200 mg/dL Desirable 200-240 mg/dL Borderline >240 mg/dL High Risk Glucose [Mass/Vol] 98 mg/dL 74-106 [facility] Potassium [Moles/Vol] 4.1 mmol/L 3.5-5.1 [facility] Protein [Mass/Vol] 7.7 g/dL 6.4-8.2 [facility] Sodium [Moles/Vol] 141 mmol/L 136-145 [facility] Triglyceride [Mass/Vol] 64 mg/dL <199 [facility] Comment on above: The drugs N-Acetylcy steine and Metamizole may falsely depress this assay.Serum Triglycerides Reference Interval Normal <150 mg/dL Borderline high 150 - 199 mg/dL High 200 - 499 mg/dL Very High > or = 500 mg/dL Laboratory - Chemistry and C hemistry - challengeOrdered By: Dr. Hightower on 12-11-2022 ALP [Catalytic activity/Vol] 58 U/L 45-117 [facility] ALT [Catalytic activity/Vol] 31 U/L 16-61 [facility] CO2 [Moles/Vol] 29.0 mmol/L 21.0-32.0 [facility] Globulin (S) [Mass/Vol] 3.8 g/dL 2.2-4.2 [facility] Urea nitrogen/Creatinine [Mass ratio] 18.9 mg/mg 10-20 [facility] No Panel InformationOrdered By: Dr. Hightower on 12-11-2022 Estimated GFR (MDRD) Amer 136 mL/min >60 [facility] Comment on above: GFR Calc Estimated GFR (MDRD) Non-Af Amer 112 mL/min >60 [facility] Comment on above: Non- GFR Calc Serum or plasma albumin luis urement (mass/volume)Ordered By: Dr. Hightower on 12-11-2022 Albumin [Mass/Vol] 3.9 g/dL 3.2-5.0 [facility] Serum or plasma albumin/glob ulin mass ratioOrdered By: Dr. Hightower on 12-11-2022 Albumin/Globulin [Mass ratio] 1.0 {ratio} 0.9-2.4 [facility] Serum or plasma calcium luis urement (mass/volume)Ordered By: Dr. Hightower on 12-11-2022 Calcium [Mass/Vol] 9.2 mg/dL 8.5-10.1 [facility] Serum or plasma cholesterol in HDL measurement (mass/volume)Ordered By: Dr. Hightower on 12-11-2022 Cholesterol in HDL [Mass/Vol] 38 mg/dL >40 [facility] Comment on above: The drugs N-Acetylcy steine and Metamizole may falsely depress this assay. Reference Range HDL <40 mg/dL Low HDL Cholesterol HDL >or= 60 mg/dL High HDL Cholesterol Serum or plasma cholesterol in VLDL measurement (mass/volume)Ordered By: Dr. Hightower on 12-11-2022 Cholesterol in VLDL [Mass/Vol] 13 mg/dL 5-40 [facility] Serum or plasma creatinine m easurement (mass/volume)Ordered By: Dr. Hightower on 12-11-2022 Creatinine [Mass/Vol] 0.90 mg/dL 0.70-1.30 [facility] Comment on above: The validity of the calculated GFR & GFRAA in patients over 70 years has not been determined. Clinical correlation is essential. Serum or plasma low density lipoprotein (LDL) cholesterol measurement (mass/volume)Ordered By: Dr. Hightower on 12-11-2022 Cholesterol in LDL [Mass/Vol] 104 mg/dL 0-130 [facility] Serum or plasma urea nitroge n measurement (mass/volume)Ordered By: Dr. Hightower on 12-11-2022 Urea nitrogen [Mass/Vol] 17 mg/dL 7-18 [facility] Thin prep Papanicolaou smear with manual screeningOrdered By: Dr. Hightower on 12-11-2022 Thin prep Papanicolaou smear with manual screening 20 U/L 15-37 [facility] Thin prep Papanicolaou smear with manual screening 4 5-15 [facility] Whole blood hemoglobin A1c/t otal hemoglobin ratio (mass fraction)Ordered By: Dr. Hightower on 12-11-2022 HbA1c (Bld) [Mass fraction] 5.0 % 3.8-5.6 [facility] Comment on above: Normal < 5.7 % Predi abetic 5.7 - 6.4 % Diabetic >or= 6.5 % Please note range changes. Erythrocyte sedimentation ra azalea 05-31-2022 ESR (Bld) [Velocity] 5 mm/h 0-20 [facility] Work Phone: * Body fluid crystals type b y light microscopyon 03-24-2022 Crystals LM Nom (Body fld) SEE PATH REV [facility] Work Phone: Blood lymphocytes/100 leukoc yteson 03-24-2022 Lymphocytes/100 WBC (Bld) 28 % [facility] Work Phone: Color of Synovial fluidon Color (Syn fld) Red Pale Yellow [facility] Work Phone: Determination of appearance of synovial fluidon 03-24-2022 Appearance (Syn fld) Turbid CLEAR [facility] Work Phone: No Panel Informationon 03-24 Synovial Fluid Mononuclear WBCs 2.506 10^3/ul [facility] Work Phone: Synovial Fluid Mononuclear WBCs % 70.8 % [facility] Work Phone: Synovial Fluid Polynuclear WBCs 1.037 10^3/uL [facility] Work Phone: [phone] Synovial Fluid Polynuclear WBCs % 29.2 % [facility] Work Phone: Synovial Fluid Total Cells Counted 3.6100 10^3/uL 0.000-0.000 [facility] Work Phone: Comment on above: This is the Total Nu mber of Nucleated Cell Types in the Body Fluid. Review by pathologiston 03-14 Pathologist review Tono (Unsp spec) [Interp] May follow [facility] Work Phone: Pathologist review Tono (Unsp spec) [Interp] Reviewed [facility] Work Phone: Comment on above: Previous reported re sult: Will follow Edited by: RGOOD on 03/26/22:0717Negative for malignant cells.Mixture of calcium pyrophosphage (pseudogout) and nondescript crystals are noted.Bloody specimen.Lorenzo Gonzalez M.D. 03/26/22This case was reviewed with Dr. Saba who concurs with the above diagnosis. AMENDED REPORT 03/26/22 0717 PATH REV previously reported as: Will follow Specimen source identificati on of body fluidon 03-24-2022 Specimen source Nom (Body fld) SYNOVIAL [facility] Work Phone: Specimen source Nom (Body fld) LEFT KNEE [facility] Work Phone: Synovial fluid erythrocytes count (number/volume)on 03-24-2022 RBC (Syn fld) [#/Vol] 2.831 10^6/uL 0-0 [facility] Work Phone: Synovial fluid leukocytes co unt (number/volume)on 03-24-2022 WBC (Syn fld) [#/Vol] 3.5430 10^3/uL 0.000-0.002 [facility] Work Phone: Synovial fluid monocyte perc entageon 03-24-2022 Monocytes/100 WBC (Syn fld) 38 % [facility] Work Phone: [phone] Synovial fluid neutrophil pe rcentageon 03-24-2022 Neutrophils/100 WBC (Syn fld) 34 % 0-25 [facility] Work Phone: CT HIP RIGHT WITHOUT CONTRAS Ton 04-30-2021 CT HIP RIGHT WITHOUT CONTRAST DATE: 04/30/2021 EXAM: CT HIP RIGHT WITHOUT CONTRAST CLINICAL HISTORY: Deformity ;Femoroacetabular impingement of right hip TECHNIQUE: Volumetric CT scan of the right hip was performed with scanning through the pelvis with images reconstructed in the axial, coronal and sagittal planes including dedicated reconstructed images of the right hip including oblique images. No intravenous contrast was used. The patient was not sedated for the exam. Additionally, axial oblique images performed through the right hip at a separate workstation and sent to PACS for review. COMPARISON: None FINDINGS: Hip: Bones: Right neck-horizontal angle: 6 degrees Right tibial condyle-horizontal angle: 31 degrees Right femoral version: -25 degrees, femoral retroversion. Some loss of sphericity of the right femoral head superiorly with suggestion of small superior Cam bump (for example see coronal series 9B image 50). However, on reconstructed axial oblique imaging of the right hip, alpha angle measures within normal limits at approximately 36 degrees . No definite CAM bone. No acetabular fragmentation or fracture seen. Left neck-horizontal angle: 24 degrees Left tibial condyle-horizontal angle: 20 degrees Left femoral version: 4 degrees, femoral anteversion. Coxa vera present involving the proximal right femur with pin tracks seen involving the femoral neck and small osseous fragment adjacent to the entrance site at the inferior aspect of the greater trochanter on the right. No acute bony findings. Femoral heads appear appropriately covered by the bony acetabular roof. IMPRESSION: 1. Right femoral retroversion measuring approximate 25 degrees. 2. Right coxa vera with postoperative change with pin tracks present in patient with remote history of femoral neck fracture. Bony remodeling. There is loss of sphericity of the right femoral head superiorly on coronal imaging with suggestion of small CAM bump superiorly. However, on axial oblique imaging, alpha angle measures within normal limits. No definite CAM bump seen anteriorly. Interpreted by: Juancarlos Dickinson MD Signed by: Juancarlos Dickinson MD on 05/01/2021 12:37 PM Normal [facility] XR HIP RIGHT 2 VIEWSon 04-09 XR HIP RIGHT 2 VIEWS EXAM: 4 view right hip VIEWS,, 04/09/2021 09:57 AM COMPARISON: No prior studies available for comparison. CLINICAL INDICATIONS: right hip pain RELEVANT CLINICAL HISTORY: M25.551:Right hip pain Standing AP pelvis / AP and 45 degree Mahoney view of right Hip and False profile view of right Hip.; FINDINGS: 4 images obtained. Femoral head is seated within the acetabulum. Postsurgical changes are noted in the femoral neck with a slight varus deformity. There is a cam morphology. The joint space is not significantly narrowed. No radiopaque foreign body or pathologic soft tissue calcifications. Left hip is grossly intact. IMPRESSION: Postsurgical changes within the right femoral neck with a varus deformity Cam morphology No acute osseous abnormality Normal [facility] IMPRESSION: Postsurgical changes within the right femoral neck with a varus deformity Cam morphology No acute osseous abnormality OLOGY EXAM: 4 view right h ip VIEWS,, 04/09/2021 09:57 AM COMPARISON: No prior studies available for comparison. CLINICAL INDICATIONS: right hip pain RELEVANT CLINICAL HISTORY: M25.551:Right hip pain Standing AP pelvis / AP and 45 degree Mahoney view of right Hip and False profile view of right Hip.; FINDINGS: 4 images obtained. Femoral head is seated within the acetabulum. Postsurgical changes are noted in the femoral neck with a slight varus deformity. There is a cam morphology. The joint space is not significantly narrowed. No radiopaque foreign body or pathologic soft tissue calcifications. Left hip is grossly intact. [facility] Lilian Dhillon D O - 04/09/2021 EXAM: 4 view right hip VIEWS,, 04/09/2021 09:57 AM COMPARISON: No prior studies available for comparison. CLINICAL INDICATIONS: right hip pain RELEVANT CLINICAL HISTORY: M25.551:Right hip pain Standing AP pelvis / AP and 45 degree Mahoney view of right Hip and False profile view of right Hip.; FINDINGS: 4 images obtained. Femoral head is seated within the acetabulum. Postsurgical changes are noted in the femoral neck with a slight varus deformity. There is a cam morphology. The joint space is not significantly narrowed. No radiopaque foreign body or pathologic soft tissue calcifications. Left hip is grossly intact. IMPRESSION IMPRESSION: Postsurgical changes within the right femoral neck with a varus deformity Cam morphology No acute osseous abnormality [facility] Radiology Study observation (narrative) [facility] XR HIP RIGHT 2 VIEWSOrdered By: Lilian Dhillon on 04-09-2021 [facility] Work Phone: BN HIP, UNILATERAL W/PELVIS WHEN PERFORMED 2-3 VIEWSon 03-22-2021 BN HIP, UNILATERAL W/PELVIS WHEN PERFORMED 2-3 VIEWS Patient Name: HOWARD AGUILAR STUDY: HIP, UNILATERAL W/PELVIS WHEN PERFORMED 2-3 VIEWS; 03/22/2021 11:15 am INDICATION: PAIN. COMPARISON: None. ACCESSION NUMBER(S): [id number] ORDERING CLINICIAN: FE FRANKS FINDINGS: Right hip, AP and lateral views Deformity of the right femur may relate to prior fracture. There is coxa vara deformity. Postsurgical changes in the femur with cross structures in the femoral neck. No degenerative changes seen. IMPRESSION: Deformity of the right proximal femur with postsurgical changes. No acute abnormality seen Electronically signed by: RAMOS IQBAL MD Normal [facility] BN PELVIS COMPLT, MIN 3 VIEW Son 03-22-2021 PELVIS COMPLT, MIN 3 VIEWS Patient Name: HOWARD AGUILAR STUDY: PELVIS COMPLT, MIN 3 VIEWS; 03/22/2021 11:15 am INDICATION: Right hip pain. COMPARISON: None. ACCESSION NUMBER(S): [id number] ORDERING CLINICIAN: ISAURA BENJAMIN FINDINGS: Right hip, AP and lateral views Deformity of the right femur may relate to prior fracture. There is coxa vara deformity. Postsurgical changes in the femur with cross structures in the femoral neck. No degenerative changes seen. The left hip is unremarkable IMPRESSION: Deformity of the right proximal femur with postsurgical changes. 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 I had a detailed discussion with them regarding their pathology. He is having symptoms and has gait abnormalities due to foreshortened limb and has a known labral tear. Likely simply should be done within the next 12 months. There is no emergency or real urgency to this but he is certainly a candidate for a valgus proximal femoral osteotomy. Prior to this I would require a CT scan of his femur with 3D reconstructions to assess rotational alignment and need for the rotating him as a part of the osteotomy. They will discuss this with her family and get back to me regarding scheduling. Once they have decided to move forward with surgery I will order the CT scan for operative planning. Nonoperative and operative treatment options were presented to the patient. After discussion, operative treatment was elected. Risks and benefits of surgery were discussed with the patient which include, but are not limited to, , infection, bleeding, neurologic damage, nonunion, malunion, posttraumatic arthritis, incomplete resolution of symptoms, failure of the operation, and others. The patient understood and elected to proceed. Natural History reviewed. All questions answered. He was in agreement with the plan. This note was created using voice recognition software and was not corrected for typographical or grammatical errors. History of Present Illness 21-year-old male presenting with a chief complaint of right hip pain. This is a 21-year-old male who likely has a history of right hip slipped capital femoral epiphysis injury in the past. He has a shortened right limb. He has had persistent and consistent right sided hip and groin pain for several years. He was evaluated in [place] and [place] definitive management. He has some evidence of labral tearing on MRI. His pain is now gone to the point where it affects his daily living and activities on a daily basis and functional movements of his hip as well as walking. Review of Systems The patients full medical history, surgical history, medications, allergies, family, medical history, social history, and a complete 30 point review of systems is documented in the medical record on the signed, scanned medical intake sheet or reviewed in the history of present illness. Active Problems Problems Right hip pain (719.45) (M25.551) Physical Exam Gen: The patient is alert and oriented 3, is in no acute distress, and appear their stated age and weight. Psychiatric: Mood and affect are appropriate. Eyes: Sclera are white, and pupils are round and symmetric. ENT: Mucous membranes are moist. Neck: Supple. Thyroid is midline. Respiratory: Respirations are nonlabored, chest rise is symmetric. Cardiac: Rate is regular by palpation of distal pulses. Abdomen: Nondistended. Integument: No obvious cutaneous lesions are noted. No signs of lymphangitis. No signs of systemic edema. Gait and stance examination demonstrate a reciprocal heel toe gait. Trendelenburg sign is positive. Right hip examination reveals [100] degrees of flexion, 0 degrees of internal rotation, 50 degrees of external rotation, and 40 degrees of abduction. Anterior impingement sign is positive. Posterior impingement sign is negative. Subspine impingement sign is negative. FREDERICK test is negative. Stinchfield test is positive. Srini test is negative. There is no tenderness to palpation over the pubic symphysis, anterior groin, greater trochanter, or gluteal region. Posterior apprehension is positive. Anterior apprehension is negative. Hip flexion strength is 5 out of 5. Adductor strength is 5 out of 5. Abduction strength is 5 out of 5 in the lateral position. Pelvic obliquity is right side low Distally, ankle dorsiflexion and plantarflexion as well as great toe extension is 5 out of 5. Sensation is intact to light touch in the tibial, sural, saphenous, superficial peroneal, and deep peroneal nerve distributions. The foot is warm and well-perfused with palpable pedal pulses. There is [no obvious] edema present. Skin is warm, dry and intact. Results/Data Xray Pelvis 1 or 2 [id number] 09:00AMOsgirmaIsaura Test NameResultFlagReference Xray Pelvis 1 or 2 View Please click on the link to view the study images Multiple views of his hip and pelvis on the right demonstrate Signatures Electronically signed by : Fe Franks MD; Mar 22 2021 11:30AM EST (Author) Normal [facility] 03-22-2021 XR Pelvis 3 Views Normal [facility] Work Phone: XR Pelvis and Hip - left 2 Views Normal [facility] Work Phone: XR Pelvis 1 or 2 Views Please click on the link to view the study images Normal [facility] Work Phone: XR Pelvis and Hip - left 2 Views Please click on the link to view the study images Normal [facility] Work Phone: Aerobe Cultureon 04-21-2019 Aerobe Culture Aerobe Culture: No g rowth 3 days Source: TISSU Collected: 04/21/19 11:02 Site: left knee synovium Received : 04/21/19 12:48 Aer[employer] FINAL 04/24/19 08:33 No growth 3 days Normal [facility] Comment on above: Performed By: #### A ER #### [address] [address] Ana[employer] [employer]on 9 Anaerobe Culture Anaerobe Culture: No anaerobes isolated. Source: TISSU Collected: 04/21/19 11:02 Site: left knee synovium Received : 04/21/19 12:47 Anaerobe Culture FINAL 04/26/19 12:52 No anaerobes isolated. Normal [facility] Comment on above: Performed By: #### A NAC #### [address] [address] [employer]Scot 04-21-2019 TSH Qn Ortho Attending Hist ory and Physical Addendum No interval change in patients History and Physical as previously noted. I personally performed chatterjee portions of the history and physical examination of this patient and discussed the management plan with the surgical team. I reviewed the hosopitalist note. The findings and the plan of care are set forth below. Quang Jimenez MD 04/21/2019 9:18 AM Normal [facility] Karyotype,Tumoron 04-21-2019 Karyotype,Tumor SEE BELOW Normal [facility] Comment on above: Result Comment: SPEC IMEN: TUMOR CLINICAL INFORMATION: synovial tumor, left knee; hemosiderotic synovitis KARYOTYPE: 46,XY[27] INTERPRETATION: Normal male karyotype G-banding of 27 metaphases from five cultures examined showed no evidence of consistent structural or numerical abnormalities. This analysis does not rule out the possibility of low-level mosaicism, subtle structural rearrangements, or other genetic abnormalities not detectable at the stated microscopic resolution Suggest correlation with clinicopathologic findings, [id number]. ANALYSIS: # Metaphases counted: 27 Banding Resolution: 400 # Metaphases analyzed: 27 Banding Technique: GTW # Metaphases karyotyped: 13 COMMENT: This result is based on analysis of metaphase cells from 4-6 day cultures of a sample of this synovial tumor. ASSOCIATED CASE #: [id number], [place] GIRALDO LEONID, PH.D., [facility], [facility] 05/19/2019 Performed By: #### K TU #### [address] [address] Surgical Pathology Teston Surgical Pathology Test SEE BELOW Normal [facility] Comment on above: Result Comment: SULEMA Fang DIAGNOSIS: Left knee, synovectomy: Hemosiderotic synovitis. See Comment. SPECIMEN: SYNOVIAL TISSUE- Left knee DATE OF SURGERY: 04/21/2019 CLINICAL INFORMATION: Recurrent dislocation of left patella. GROSS DESCRIPTION: Received fresh in a cloth sac are multiple fragments of soft, katia red-brown to white soft tissue which measure in aggregate approximately 4.0 x 3.0 x 0.5 cm. A portion of the specimen is submitted for aerobic and anaerobic bacterial cultures. A portion of the specimen is submitted for karyotype. The majority of the remaining specimen is submitted for histologic examination in two cassettes. MICROSCOPIC EXAMINATION: Sections demonstrate synovium with slender villous morphology and synoviocyte hyperplasia. There is marked deposition of hemosiderin in synoviocytes and within macrophages in subsynovial connective tissue; hemosiderin deposition is confirmed with Prussian blue iron stain. There are many perivascular lymphocytic aggregates; a few plasma cells are admixed with some of the lymphocytes, as are focally a few eosinophils. There is no infiltrative mononuclear and giant cell proliferation. No vascular tumor or malformation is identified. Identified in slide A-[id number] is a portion of crystalline louis-brown material of uncertain identity which is embedded within collagenous tissue; the material is not identified in Prussian blue-stained sections. 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 The specimen does not show the mononuclear and giant cell proliferation which is associated with pigmented villonodular synovitis (PVNS). Karyotype was performed in order to identify chromosomal anomalies which are sometimes associated with PVNS; the study results are pending and will be reported separately. Hemosiderotic synovitis is classically associated with hemophilia, but it can occur in the absence of a bleeding disorder and may be associated with etiologies such as trauma, arthritis, or intra-articular vascular tumors/malformations. The findings of synoviocyte hyperplasia, lymphoid aggregates, and plasma cell infiltrates, while somewhat nonspecific, may be associated with rheumatoid arthritis. The possibility of co-existent rheumatoid synovitis cannot be excluded; correlation with other clinical and laboratory data is recommended. The case has been reviewed by Drs. 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 Aerobic and anaerobic bacterial cultures show no growth. References: 1. rhonda Wilson. Nonhemophilic hemosiderotic synovitis of the knee: a case report and review of literature. [place] Journal of Pathology & Microbiology 57:473-475, 2014. 2. Marlon OLVERA. Pathology of the synovium. [place] Journal of Clinical Pathology 114:773-784, 2000. STAINS AND PROCEDURES: H&E, Prussian blue; control shows appropriate staining. AICHA MCINTYRE M.D. ASSOCIATE PATHOLOGIST 04/26/2019 Performed By: #### S UR #### [place] [address] Progress Noteon 11-29-2018 Desktop Support Specialist Authentication Interface Message Text Patient ID: Howard Aguilar is a 18 y.o. male. His chief complaint(s) include: Cough (Shots?) Assessment 1. Influenza Plan Howard was seen today for cough. Diagnoses and all orders for this visit: Influenza - oseltamivir phosphate (TAMIFLU) 6 MG/ML oral suspension; Take 12.5 mL (75 mg) by mouth 2 times daily for 5 days No follow-ups on file. Discussed symptom care. Subjective He is accompanied by his mother. Cough The onset has been acute. The duration has been 3 days. The patient's symptoms have included fever, rhinorrhea and cough. The patient's symptoms have included no bilateral ear pain, no vomiting, no diarrhea and no rash. The patient has been exposed to no sick contacts at home . The patient's home management has included cough suppressants (mucinex). Primary Care Review of Systems Objective Vital Signs 11/29/18 0944 Temp: 36.9 C (98.4 F) TempSrc: Temporal Weight: 68.5 kg There is no height or weight on file to calculate BMI. Physical Exam Constitutional: He is active. No distress. Sick looking. HENT: Head: Atraumatic. Right Ear: Tympanic membrane normal. Left Ear: Tympanic membrane normal. Nose: Nasal discharge present. Mouth/Throat: Mucous membranes are moist. Pharynx erythema present. Eyes: Conjunctivae are normal. Cardiovascular: Normal rate and regular rhythm. Heart murmur not heard. Pulmonary/Chest: Breath sounds normal. There is normal air entry. Neurological: He is alert. Vitals reviewed: Temperature 36.9 C (98.4 F), temperature source Temporal, weight 68.5 kg. Normal [facility] Progress Noteon 10-04-2018 Desktop Support Specialist Authentication Interface Message Text Patient ID: Howard Aguilar is a 18 y.o. male. His chief complaint(s) include: ADHD Follow-up Assessment 1. Attention deficit hyperactivity disorder (ADHD), combined type Howard Lawrence was seen today for adhd follow-up. Diagnoses and all orders for this visit: Attention deficit hyperactivity disorder (ADHD), combined type No follow-ups on file. Discussed doing well on medication. Subjective He is accompanied by his mother and sibling(s). ADHD Follow-up The information was obtained from the parent(s). Current ADHD medication(s) include Adderall XR. Dosage schedule: daily, off medication on weekends and off medication during the summer. Compliance with medication: takes medication daily. Side effects have not included decreased appetite, stomachache, headaches and delayed sleep onset. 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 His school performance includes: doing well, doing well with homework, meeting expectations, A's and B's, C's and getting along with peers. The patient has shown improvement with being attentive to details, sustaining attention in tasks, listening when spoken to, finishing schoolwork, being easily distracted and being forgetful. The patient has shown improvement in fidgeting, leaving their seat, running about/climbing excessively, playing quietly, being on the go and talking excessively. Primary Care Review of Systems Objective Vital Signs 10/04/18 1349 BP: 135/74 Pulse: 75 Weight: 68.1 kg Height: 166.9 cm Body mass index is 24.45 kg/m . Physical Exam Constitutional: He appears well. He is active. No distress. HENT: Head: Atraumatic. Right Ear: Tympanic membrane and external ear normal. Left Ear: Tympanic membrane and external ear normal. Nose: Nose normal. Mouth/Throat: Mucous membranes are moist. Dentition is normal. Eyes: Conjunctivae and EOM are normal. Pupils are equal, round, and reactive to light. Neck: Neck supple. No neck adenopathy. Cardiovascular: Normal rate, regular rhythm, S1 normal and S2 normal. Pulses are palpable. Pulmonary/Chest: Effort normal and breath sounds normal. Abdominal: Soft. Bowel sounds are normal. Musculoskeletal: He exhibits no deformity. Neurological: He is alert. He has normal strength. He exhibits normal muscle tone. Skin: No rash noted. No cyanosis. No pallor. Skin is warm. Vitals reviewed: Blood pressure 135/74, pulse 75, height 166.9 cm, weight 68.1 kg. Normal [facility] Progress Noteon 08-24-2018 Desktop Support Specialist Authentication Interface Message Text Patient ID: Howard Aguilar is a 18 y.o. male. His chief complaint(s) include: Skin Problem Assessment 1. Acne vulgaris Plan Howard was seen today for skin problem. Diagnoses and all orders for this visit: Acne vulgaris - sulfamethoxazole-trimethopr im (BACTRIM DS) 800-160 MG per tablet; Take 1 Tab (160 mg) by mouth 2 times daily Lesions are acne and not contagious. Signed form for pt. Discussed acne treatment, pt's t-zone is clear. Will trial Bactrim. Return in about 3 months (around 11/22/2018). Subjective HPI Comments: Pt wrestles. Has some lesions on his neck school want checked. He is accompanied by his mother. Skin Problem The onset has been acute. The duration has been 1 week. The rash is located on the neck. The rash is described as red and bumpy. Primary Care Review of Systems Objective Vital Signs 08/24/18 1053 Temp: 36.3 C (97.4 F) TempSrc: Temporal Weight: 69.3 kg There is no height or weight on file to calculate BMI. Physical Exam Constitutional: He appears well. He is active. No distress. HENT: Head: Atraumatic. Right Ear: Tympanic membrane normal. Left Ear: Tympanic membrane normal. Mouth/Throat: Mucous membranes are moist. Scattered red raised pustules on left side of neck, also on upper back Eyes: Conjunctivae are normal. Cardiovascular: Normal rate and regular rhythm. Heart murmur not heard. Pulmonary/Chest: Breath sounds normal. There is normal air entry. Neurological: He is alert. Skin: Lesion noted. Closed comodones. Vitals reviewed: Temperature 36.3 C (97.4 F), temperature source Temporal, weight 69.3 kg. Normal [facility] Progress Noteon 08-19-2018 Desktop Support Specialist Authentication Interface Message Text Patient ID: Howard Aguilar is a 18 y.o. male. His chief complaint(s) include: Epistaxis Assessment 1. Frequent nosebleeds Plan Howard was seen today for epistaxis. Diagnoses and all orders for this visit: Frequent nosebleeds - Cancel: AMB Referral To ENT; Future - AMB Referral To ENT; Future Parent to call and schedule appt with [facility]. Recommended keeping a cool mist humidifier in bedroom at night. Follow up if needed. Subjective HPI Comments: Off and on nosebleeds for the last few years. Nosebleed 5 days ago. Last approximately 5-8 minutes. Last nosebleed this morning. Having clots. Nosebleeds primarily affecting left nostril. He is accompanied by his mother. Epistaxis This problem is chronic. (2-3 years). The onset has been variable. The course is unchanging. The patient's symptoms have included no fever. Review of Systems HENT: Positive for nosebleeds. Objective Vital Signs 08/19/18 1402 Temp: 36.6 C (97.9 F) TempSrc: Temporal Weight: 69.4 kg There is no height or weight on file to calculate BMI. Physical Exam Constitutional: He appears well. He is active. No distress. HENT: Head: Atraumatic. No sinus tenderness. Right Ear: Tympanic membrane normal. Left Ear: Tympanic membrane normal. Mouth/Throat: Mucous membranes are moist. No pharynx erythema. Dried blood inside left naris. Left turbinate bright pink. Eyes: Conjunctivae are normal. Right eyelid exhibits no discharge. Left eyelid exhibits no discharge. Cardiovascular: Normal rate and regular rhythm. No murmur heard. Pulmonary/Chest: Breath sounds normal. There is normal air entry. No stridor. No respiratory distress. Air movement is not decreased. He has no wheezes. He has no rhonchi. He has no rales. Exhibits no retraction. Neurological: He is alert. Normal [facility] Gram stain for investigation of transfusion reaction Microscopic observation Gram stain Nom (Unsp spec) [facility] Work Phone: Vital Signs Date Time Vital Sign Value Performing Clinician Faci lity 02-05-2024 10:08-0400 Body height 170.2 cm Sandra Gillette MD Work Phone: [facility] 02-05-2024 10:08-0400 Body mass index (BMI) [Ratio] 28.19 kg/m2 Sandra Gillette MD Work Phone: [facility] 02-05-2024 10:08-0400 Body weight 81.65 kg Sandra Gillette MD Work Phone: [facility] 03-24-2022 15:48-0400 Body height 152.4 cm [facility] Work Phone: 04-09-2021 11:11-0400 Body height 167.6 cm Kiet Taylor MD Work Phone: [facility] 04-09-2021 11:11-0400 Body mass index (BMI) [Ratio] 25.34 kg/m2 Kiet Taylor MD Work Phone: [facility] 04-09-2021 11:11-0400 Body weight 71.22 kg Kiet Taylor MD Work Phone: [facility] Encounters Encounter Date Encounter Type Care Provider Facility Start: 07-03-2025 Encounter for genera l adult medical examination without abnormal findings [facility] Start: 07-03-2025 ambulatory [facility] Facility: [facility] Start: 02-17-2024 End: 02-17-2024 Telemedicine consultation with patient Hosea Ac MD Work Phone: [facility] Start: 02-17-2024 End: 02-17-2024 [facility] on above: Leg length discrepan cy (Primary Dx) Start: 02-05-2024 End: 02-05-2024 Subsequent hospital visit by physician Xr [facility] Comment on above: Leg length discrepan cy [M21.70] Start: 02-05-2024 End: 02-05-2024 ambulatory SANDRA GILLETTE Facility:[facility] Start: 02-05-2024 End: 02-05-2024 Patient encounter procedure Sandra Gillette MD Work Phone: Orthopaedics Comment on above: Leg length discrepan cy (Primary Dx) Start: 02-05-2024 End: 02-05-2024 Subsequent hospital visit by physician Jason [facility] Comment on above: Pain in right hip [M 25.551] Start: 02-02-2024 Orders Only Sandra Gillette MD Work Phone: Orthopaedics Comment on above: Pain in right hip (P rimary Dx); Pain in left hip Start: 01-07-2024 End: 01-07-2024 ambulatory [facility] Work Phone: Start: 01-07-2024 End: 01-07-2024 [facility] Start: 10-27-2023 End: 10-27-2023 ambulatory [facility] Work Phone: Start: 10-27-2023 End: 10-27-2023 [facility] Start: 12-11-2022 End: 12-11-2022 ambulatory [facility] Work Phone: Start: 12-11-2022 End: 12-11-2022 [facility] Start: 05-31-2022 End: 05-31-2022 ambulatory [facility] Work Phone: Start: 05-31-2022 End: 05-31-2022 Patient encounter procedure [facility] Start: 03-24-2022 End: 03-24-2022 [facility] Start: 04-09-2021 ambulatory Kiet TAYLOR Faci lity:[facility] Start: 04-09-2021 End: 04-09-2021 Subsequent hospital visit by physician Kiet Taylor MD Work Phone: Imaging [facility] Comment on above: Arrived Start: 04-09-2021 End: 04-09-2021 Office outpatient new 45 minutes Kiet Taylor MD Work Phone: Sports Medicine [facility] Comment on above: Right hip pain (Prim hilary Dx) Start: 03-25-2021 Chart Update Referring Prov ider Unknown IJ-Urzhcjmxwkhn-Dcauda 210 Work Phone: Start: 03-22-2021 Office outpatient ne w 30 minutes Referring Provider Unknown FM-Dnecymvgtljr-Vhmapon 5100 Work Phone: Start: 03-14-2021 AUDIT Fe Franks MD Work Phone: YA-Wuorreoobllc-Eavgshl 5100 Work Phone: Procedures Date Procedure Procedure Detail Performing Clinician Start: 02-05-2024 End: 02-05-2024 Bone length studies Stephanie Rodriguez PA-C Work Phone: Start: 02-05-2024 Radex hip unilateral with pelvis 2-3 views Sandra Gillette MD Work Phone: Start: 02-05-2024 Radex hips bilateral with pelvis minimum 5 views Sandra Gillette MD Work Phone: Start: 04-09-2021 Radex hip unilateral with pelvis 2-3 views Kiet Taylor MD Work Phone: Acid fast bacilli culture Cytopathology proced ure, preparation of smear, genital source Investigation of transfusion reaction Mycology culture Plan of Treatment Date Care Activity Detail Author Start: 05-15-2024 Influenza vaccination Influenz a Vaccine (Season Ended) [facility] Start: 02-05-2024 End: 02-05-2024 Patient encounter procedure Radiology Comment on above: XR RIGHT HIP 2V - St anding and Sitting Direct lateral pelvis XRays bilateral hip pain Start: 09-14-2023 Behavioral Health Screening Behavioral Health Screening [facility] Start: 05-15-2023 Covid-19 Vaccine ( season) Covid-19 Vaccine ( season) [facility] Start: 05-31-2022 Urine microalbumin profile DTaP,Tdap,Td Vaccine (7 - Td or Tdap) [facility] Start: 03-24-2022 [facility] Work Phone: Start: 05-15-2021 Influenza vaccination INFLUENZA VACC INE (#1) [facility] Start: 03-22-2021 NPV, Provider: Fe Franks, Status: Pen, Time: 10:00 AM OS-Qkpauewvdcqi-Oscz ell 5100 Work Phone: Start: 2020 Hepatitis B Vaccine (1 of 3 - 19+ 3-dose series) Hepatitis B Vaccine (1 of 3 - 19+ 3-dose series) [facility] Start: 2020 Third diphtheria, tetanus and acellular pertussis (DTaP) vaccination TDAP (ADULT) [facility] Start: 2020 Urine microalbumin profile DTaP,Tdap,Td Vaccine (1 - Tdap) [facility] Start: 04-29-2019 HPV Vaccine (3 - Mal e 3-dose series) HPV Vaccine (3 - Male 3-dose series) [facility] Start: 2019 Hepatitis C screening Hepatitis C Sc reening [facility] Start: 2019 HIV screening HIV Screening [facility] Start: 2019 Tetanus vaccination TETANUS [facility] Start: 01-25-2019 Meningococcal B Vacc ine: Consider Based On Risk (2 of 2 - Risk Bexsero 2-dose series) Meningococcal B Vaccine: Consider Based On Risk (2 of 2 - Risk Bexsero 2-dose series) [facility] Start: 2016 HIV screening HIV SCREENING DISCUSSION [facility] Start: 2016 HPV Vaccine (1 - Mal e 3-dose series) HPV Vaccine (1 - Male 3-dose series) [facility] Start: 2015 Peds To Adult Transi tion Annual Assessment Peds To Adult Transition Annual Assessment [facility] Start: 2013 COVID-19 VACCINE (1) COVID-19 VACCIN E (1) [facility] Start: 2013 Peds To Adult Transi tion Initial Discussion Peds To Adult Transition Initial Discussion [facility] Start: 2012 Vaccination for rick n papillomavirus HPV VACCINE ADOL (1 - Male 2-dose series) [facility] Start: 2001 Hepatitis C antibody , confirmatory test HEPATITIS C VIRUS SCREENING [facility] Acid fast bacilli culture [facility] Work Phone: Anaerobic Culture Anaerobic Culture [facility] Work Phone: Bacteria identified in Unspecified specimen by Anaerobe culture [facility] Work Phone: Bacterial culture Body Fluid Culture [facility] Work Phone: Cyclic citrullinated peptide IgG Ab [Units/volume] in Serum or Plasma [facility] HLA-B27 [Presence] b y BRIAN with probe detection [facility] Mycobacterium sp identified in Unspecified specimen by Organism specific culture [facility] Work Phone: End: 03-03-2025 XR Hip - right AP and Lateral XR HIP 2V AP/LAT RIGHT (AK,FL,ME,UN) Radiology Routine Pain in right hip 1 Occurrences starting 02/02/2024 until 03/03/2025 [facility] Comment on above: 1 Occurrences starti ng 02/02/2024 until 03/03/2025 End: 03-03-2025 XR HIP BILATERAL 5V PEL/AP/LAT EACH HIP XR HIP BILATERAL 5V PEL/AP/LAT EACH HIP Radiology Routine Pain in right hip Pain in left hip 1 Occurrences starting 02/02/2024 until 03/03/2025 [facility] Work Phone: Comment on above: 1 Occurrences starti ng 02/02/2024 until 03/03/2025 Immunizations Immunization Date Immunization Notes Care Provider Fa cili 06-25-2022 influenza virus vacc ine, unspecified formulation Sandra Gillette MD Work Phone: [facility] 07-14-2020 Influenza, injectabl e, [place] Canine Kidney, preservative free, quadrivalent Fe Franks MD Work Phone: KC-Yzvncwujmduo-Tuh well 5100 Work Phone: 07-14-2020 pneumococcal polysaccharide vaccine, 23 valent Fe Franks MD Work Phone: HW-Fcwjkszwpnjn-Qfp well 5100 Work Phone: 12-28-2018 hepatitis A vaccine, pediatric/adolescent dosage, 2 dose schedule Fe Franks MD Work Phone: HR-Zzrgxnaecimv-Dvw well 5100 Work Phone: 12-28-2018 Human Papillomavirus 9-valent vaccine Fe Franks MD Work Phone: OX-Kwojbnbnvhiq-Aht well 5100 Work Phone: 12-28-2018 meningococcal B vacc ine, recombinant, OMV, adjuvanted Fe Franks MD Work Phone: WC-Nyguwyjzthae-Xan well 5100 Work Phone: 07-29-2018 influenza, injectabl e, quadrivalent, preservative free Fe Franks MD Work Phone: DD-Lsxjqvbayukb-Cfa well 5100 Work Phone: 03-11-2018 hepatitis A vaccine, pediatric/adolescent dosage, 2 dose schedule Fe Franks MD Work Phone: DL-Wtajdmnubeiz-Jaa well 5100 Work Phone: 03-11-2018 Human Papillomavirus 9-valent vaccine Fe Franks MD Work Phone: PS-Ixgtrdkdsaid-Avy well 5100 Work Phone: 03-11-2018 meningococcal polysaccharide (groups A, C, Y and W-135) diphtheria toxoid conjugate vaccine (MCV4P) Fe Franks MD Work Phone: KF-Zbjdftwdyicl-Yxz well 5100 Work Phone: 06-28-2016 influenza, injectabl e, quadrivalent, preservative free Fe Franks MD Work Phone: MP-Czoevdmzctdv-Loy well 5100 Work Phone: 07-24-2015 influenza, injectabl e, quadrivalent, preservative free Fe Franks MD Work Phone: KO-Zsbksadrktuy-Amw [facility] 5100 Work Phone: 07-24-2015 pneumococcal polysaccharide vaccine, 23 valent Fe Franks MD Work Phone: XY-Aohochvubyzc-Aaw well 5100 Work Phone: 06-16-2013 influenza, seasonal, injectable Fe Franks MD Work Phone: JE-Uuwcgahaktth-Gnn well 5100 Work Phone: 05-31-2012 influenza virus vacc ine, live, attenuated, for intranasal use Fe Franks MD Work Phone: IF-Shyglqdcvfhx-Stf [facility] 5100 Work Phone: 05-31-2012 meningococcal polysaccharide (groups A, C, Y and W-135) diphtheria toxoid conjugate vaccine (MCV4P) Fe Franks MD Work Phone: JQ-Glskdktstwni-Vig well 5100 Work Phone: 05-31-2012 tetanus toxoid, redu yen diphtheria toxoid, and acellular pertussis vaccine, adsorbed Fe Franks MD Work Phone: HW-Tfpiwzpfkulx-Ine well 5100 Work Phone: 07-14-2011 influenza virus vacc ine, live, attenuated, for intranasal use Fe Franks MD Work Phone: IR-Fxvwmmxcemmu-Azt well 5100 Work Phone: 06-10-2010 influenza virus vacc ine, live, attenuated, for intranasal use Fe Franks MD Work Phone: TD-Gmennmqhafrp-Sym well 5100 Work Phone: 06-11-2006 varicella virus vaccine Eric Franks MD Work Phone: ZM-Heysypurmlur-Pmi well 5100 Work Phone: 05-22-2005 diphtheria, tetanus toxoids and acellular pertussis vaccine, unspecified formulation Fe Franks MD Work Phone: LC-Ncofhlvrvfsp-Tny well 5100 Work Phone: 05-22-2005 measles, mumps and rubella virus vaccine Fe Franks MD Work Phone: LF-Tcptoqdnptpq-Wys well 5100 Work Phone: 05-22-2005 poliovirus vaccine, inactivated Fe Franks MD Work Phone: HK-Hyswmlwsimxs-Puq well 5100 Work Phone: 03-29-2003 pneumococcal conjuga te vaccine, 7 valent Fe Franks MD Work Phone: LR-Nqerwnsgidcl-Led well 5100 Work Phone: 09-29-2002 influenza virus vacc ine, whole virus Fe Franks MD Work Phone: OL-Carxkimcnckg-Vjp well 5100 Work Phone: 06-29-2002 diphtheria, tetanus toxoids and acellular pertussis vaccine, unspecified formulation Fe Franks MD Work Phone: AI-Bxgyfpnqfpza-Nlj well 5100 Work Phone: 06-29-2002 varicella virus vaccine Eric Franks MD Work Phone: TN-Riybusqmmavu-Hjh well 5100 Work Phone: 06-23-2002 haemophilus influenz ae type b vaccine, PRP-T conjugate Fe Franks MD Work Phone: KL-Keygoycedopj-Hgv well 5100 Work Phone: 03-29-2002 hepatitis B vaccine, pediatric or pediatric/adolescent dosage Fe Franks MD Work Phone: QC-Assfawnobuuq-Qah well 5100 Work Phone: 03-29-2002 measles, mumps and rubella virus vaccine Fe Franks MD Work Phone: CZ-Shtvettugtvv-Htz well 5100 Work Phone: 2001 poliovirus vaccine, inactivated Fe Franks MD Work Phone: SB-Kupwmfnceewt-Kff well 5100 Work Phone: 2001 diphtheria, tetanus toxoids and acellular pertussis vaccine, unspecified formulation Fe Franks MD Work Phone: TE-Jcrlghvnkanh-Ryk well 5100 Work Phone: 2001 haemophilus influenz ae type b vaccine, PRP-T conjugate Fe Franks MD Work Phone: YZ-Lqnnjdmzpica-Wfi well 5100 Work Phone: 2001 pneumococcal conjuga te vaccine, 7 valent Fe Franks MD Work Phone: DO-Ywdoztwzxvpe-Ugf well 5100 Work Phone: 2001 diphtheria, tetanus toxoids and acellular pertussis vaccine, unspecified formulation Fe Franks MD Work Phone: DS-Iuugmumcaacw-Lzz well 5100 Work Phone: 2001 haemophilus influenz ae type b vaccine, PRP-T conjugate Fe Franks MD Work Phone: JV-Qazefztvvgcf-Lbx well 5100 Work Phone: 2001 pneumococcal conjuga te vaccine, 7 valent Fe Franks MD Work Phone: KI-Yseftskpjiir-Jrq well 5100 Work Phone: 2001 poliovirus vaccine, inactivated Fe Franks MD Work Phone: OD-Fjyaoqsqlccg-Jtd well 5100 Work Phone: 2001 diphtheria, tetanus toxoids and acellular pertussis vaccine, unspecified formulation Fe Franks MD Work Phone: QB-Vqpdjhelirnr-Dsf well 5100 Work Phone: 2001 haemophilus influenz ae type b vaccine, PRP-T conjugate Fe Franks MD Work Phone: YT-Oxmhiuafvajf-Iho well 5100 Work Phone: 2001 hepatitis B vaccine, pediatric or pediatric/adolescent dosage Fe Franks MD Work Phone: PF-Vkimdchledtv-Qxd well 5100 Work Phone: 2001 pneumococcal conjuga te vaccine, 7 valent Fe Franks MD Work Phone: TI-Byhayrtjnqpm-Xal well 5100 Work Phone: 2001 poliovirus vaccine, inactivated Fe Franks MD Work Phone: [id number] [phone] Work Phone: 2001 hepatitis B vaccine, pediatric or pediatric/adolescent dosage Fe Franks MD Work Phone: [facility]Ofl[facility] 5100 Work Phone: Payers Date Payer Category Payer Self-pay [id number] 2014 Unknown 2005 Unknown KAROLINE RAMEY O PPO POS [id number] 2005-Present [address] [place] [address] [id number] 2005 Unknown [id number] 2001 Unknown [id number] 2001 Unknown [id number] Unknown [id number] Social History Date Type Detail Facility Start: 09-27-2014 End: 04-09-2021 Tobacco smoking status NHIS Never smoker [facility] Start: 04-09-2021 Tobacco use and exposure Never used [facility] Start: 04-09-2021 Alcohol intake Ex-drinker (finding) [facility] Start: 2001 Sex Assigned At Not on file [facility] Exposure to SARS-CoV -2 (event) Not sure [facility] Start: 06-13-2019 End: 06-13-2019 Tobacco smoking status NHIS Unknown if ever smoked [facility] Start: 2001 Sex Assigned At Male W [facility] Start: 09-27-2014 End: 02-05-2024 Alcohol intake Not Asked [facility] Start: 02-05-2024 End: 02-16-2024 Gender identity Not on file [facility] Start: 02-05-2024 End: 02-16-2024 History of Social function [facility] National Score (1-10 0), lower number is lower risk 51 [facility] Clinical Notes 04-09-2021 to 03-07-2024 Hosea Ac MD - 03/07/2024 1:23 PM Rebecca Ryan RT(R) - 02/05/2024 2:30 PM Sandra Dominique MD - 02/05/2024 10:05 AM Patti Simons RT(R) - 02/05/2024 9:00 AM EDT Note Date & Type Note Facility 03-07-2024 Note HNO ID: [id number] Author: HOSEA AC MD Service: ? Author Type: Physician Type: Progress Notes Filed: 03/07/2024 13:32 Note Text: Orthopaedic Surgery Clinic Established Visit - VIRTUAL VISIT This is a virtual visit using Audio AND video . It required patient-provider interaction for the medical decision making as documented below. History: Patient is a 23 year old male referred to me for leg length discrepancy. He has a history of a RIGHT femoral neck fx 8 yrs ago for which he underwent ORIF AND HWR, has since healed in varus. He has undergone epiphysiodesis on the left side. Also has had multiple achilles lengthening procedures on R side. He is on his feet all day for work. Complains of LEFT hip pain. Wears custom shoes at work which help, but he does not wear shoe lifts when not at work. 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 It required patient-provider interaction for the medical decision making as documented below. History: Patient is a 23 year old male referred to me for leg length discrepancy. He has a history of a RIGHT femoral neck fx 8 yrs ago for which he underwent ORIF & HWR, has since healed in varus. He has undergone epiphysiodesis on the left side. Also has had multiple achilles lengthening procedures on R side. He is on his feet all day for work. Complains of LEFT hip pain. Wears custom shoes at work which help, but he does not wear shoe lifts when not at work. Physical Exam: Not conducted due to telephone visit Imaging I personally reviewed X-Rays and discussed with patient: LLD of Assessment and Plan: Patient is a 23 year old male with R hip coxa vara, leg length discrepancy - Will trial 24 hr shoe lift to see if this improves his left hip pain, to determine if pain is coming from LLD versus coxa vara - Will then follow up in person in 4-6 weeks for in person exam/further discussions regarding surgical options -Weightbearing: Weight bearing as tolerated -Follow up: 4-6 weeks with no x-rays Hosea Ac MD 15 minutes were spent on this encounter documented in this encounter [facility] 02-05-2024 Note HNO ID: [id number] Author: REBECCA QUINTANILLA RT(R) Service: Radiology Author Type: Technologist Type: Progress Notes Filed: 02/05/2024 11:53 Note Text: Radiology Service Progress Note PATIENT NAME: HOWARD AGUILAR DATE OF SERVICE: February 05, 2024 TIME: 11:52 AM PATIENT IDENTITY VERIFICATION COMPLETED USING TWO (2) IDENTIFIERS: Name and Date of confirmed by patient verbally. FALL SCREENING: Has the patient had 2 falls in the last year or 1 fall with injury or currently using an Ambulatory Assistive Device (Walker, Cane, Wheelchair, Crutches, etc.)? No PATIENT GENDER DATA: Male PATIENT RELEVANT IMPLANT DATA REVIEWED: Not Applicable PATIENT PRESENTS WITH AN IMPLANTABLE OR ATTACHED DIRECTOR CORRECTIONAL AGENCY: No RADIOLOGY DEPARTMENT: General X-ray: Exam(s) Completed: Lower Extremity X-Ray(s): Scanogram and FLEA (Full Length Lower Extremity) PERIPHERAL IV DATA: Not applicable SIGNED BY: RT Joyce(Mattie) February 05, 2024 11:52 AM [facility] 02-05-2024 History of Present illness Narrative Radiology Service Progress Note PATIENT NAME: HOWARD AGUILAR DATE OF SERVICE: February 05, 2024 TIME: 11:52 AM PATIENT IDENTITY VERIFICATION COMPLETED USING TWO (2) IDENTIFIERS: Name and Date of confirmed by patient verbally. FALL SCREENING: Has the patient had 2 falls in the last year or 1 fall with injury or currently using an Ambulatory Assistive Device (Walker, Cane, Wheelchair, Crutches, etc.)? No PATIENT GENDER DATA: Male PATIENT RELEVANT IMPLANT DATA REVIEWED: Not Applicable PATIENT PRESENTS WITH AN IMPLANTABLE OR ATTACHED DIRECTOR CORRECTIONAL AGENCY: No RADIOLOGY DEPARTMENT: General X-ray: Exam(s) Completed: Lower Extremity X-Ray(s): Scanogram and FLEA (Full Length Lower Extremity) PERIPHERAL IV DATA: Not applicable SIGNED BY: RT Joyce(Mattie) February 05, 2024 11:52 AM documented in this encounter [facility] 02-05-2024 Note HNO ID: [id number] Author: SANDRA GILLETTE MD Service: ? Author Type: Physician Type: Progress Notes Filed: 02/05/2024 11:24 Note Text: CONSULT ORTHOPAEDIC: HIP PRIMARY CARE PHYSICIAN: No primary care provider on file. REFERRING PROVIDER: No referring provider defined for this encounter. ASSESSMENT AND PLAN Impression: Right Hip Moderate Degenerative Osteoarthritis, Post-Traumatic Leg Length Discrepancy, Right Leg [place] than Left Long orthopedic history consisting a leg length discrepancy since . He has undergone multiple orthopedic surgeries. When he was in 6th grade he had a fall out of a tree and suffered an Achilles tendon rupture. He underwent repair at that time. While in rehab he complained of right hip pain and was found to have a missed femoral neck fracture. He underwent percutaneous fixation and later had removal of his hardware. He also describes that due to his limb length discrepancies he did have a plate placed in the contralateral (left) knee. He thinks that he was in seventh or eighth grade when this happened. He has also had a left knee scope procedure. Referred by Dr. Hart for Bilateral Hip Pain Pain location: Worst on the left hip laterally. He will also get pain down his thighs. Right hip pain will wake him up at night with pain - once in a while. Pain has been progressive over the past 5 years. They have seen surgerons 2 years ago and then decided against intervention at that time. They present today to reevaluate their options. He recently saw Dr. Hart in [place] [facility]. He referred to Dr. Gooden for discussion of possible hip resurfacing. He does wear a custom shoe for his limp length discrepancy which does help. Activities creating pain: Working, exercise, walking Therapy to date - Ice or Heat: ice, heat, soaking OTC/Rx Medications (Topical/PO): ibuprofen helps takes the edge off, tylenol Brace/Splint: none Assist Device: none Physical Therapy: none recently Injections: None in the past Surgery: Last hip surgery was 8 years ago on the right hip. Left hip - no surgeries. 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 He has 141 degree femoral neck angle on the left, 125 on the right. SS Sit - [address] - 41 deg KEMI/PT st - back 3 deg Summary: Howard is sent to me today for a hip resurfacing consult. Interestingly, all of his pain is on the LEFT side and is over the greater trochanteric bursitis. I do believe that this pain is large because of trochanteric bursitis. He has a completely benign right intra-articular hip exam. While he does have a cam lesion and clear varus in his neck with some subchondral sclerosis on the acetabular side, he has virtually no complaints historically or during his exam today regarding the right hip. Lying supine, he has at least a 3 cm limb length discrepancy, and his knee is at a different level on the right side as compared to the left. I believe that we probably can account for 7-10 mm of limb length discrepancy because of his varus neck, but I also believe that he has femoral length discrepancy as well. In my mind, we need to be objective about this, starting with mechanical axis views and the scanogram. I believe that an arthroplasty, whether a hip replacement or hip resurfacing, is not necessary given his lack of intra-articular symptoms and his young age of [age] years old. Rather, I think we should be exploring options surrounding limb lengthening. Today, this can be a minimally invasive approach with a magnetic growing nail, with a plan to lengthen him 80-100% of the delta difference. He does have a mild equinus contracture after multiple Achilles lengthenings on the right side, as well as varus neck. In order to prevent his toe from catching during swing through gait, as well as to account for the potential need of a hip replacement in the future that will not have a stem to match his extreme varus anatomy at present, I do not think lengthening him to the exact same length would make a lot of sense. This is an elective operation. I would rather have this done by one of my trauma partners who has trained in this technique. I will plan on getting him referred to Dr. Ac for a discussion. I spent a total of 45 minutes on the date of the service which included [id number] patient care, completing clinical documentation, obtaining and/or reviewing separately obtained history, performing a medically appropriate examination, counseling and educating the patient/family/caregiver, ordering medications, tests, or procedures, independently interpreting results (not separately reported), and communicating results to the p (more content not included)... [facility] 02-05-2024 Note HNO ID: [id number] Author: PATTI MONTERROSO RT(R) Service: ? Author Type: Technologist Type: Progress Notes Filed: 02/05/2024 09:21 Note Text: Radiology Service Progress Note PATIENT NAME: HOWARD AGUILAR DATE OF SERVICE: February 05, 2024 TIME: 9:21 AM PATIENT IDENTITY VERIFICATION COMPLETED USING TWO (2) IDENTIFIERS: Name and Date of confirmed by patient verbally. FALL SCREENING: Has the patient had 2 falls in the last year or 1 fall with injury or currently using an Ambulatory Assistive Device (Walker, Cane, Wheelchair, Crutches, etc.)? No PATIENT GENDER DATA: Male PATIENT RELEVANT IMPLANT DATA REVIEWED: Not Applicable PATIENT PRESENTS WITH AN IMPLANTABLE OR ATTACHED DIRECTOR CORRECTIONAL AGENCY: No RADIOLOGY DEPARTMENT: General X-ray: Exam(s) Completed: Pelvis X-Ray: Pelvis with Hip Bilateral and Wt. Bearing PERIPHERAL IV DATA: Not applicable SIGNED BY: RT Pawel(R) February 05, 2024 9:21 AM [facility] 02-05-2024 History of Present illness Narrative Images from the original note were not included. CONSULT ORTHOPAEDIC: HIP PRIMARY CARE PHYSICIAN: No primary care provider on file. REFERRING PROVIDER: No referring provider defined for this encounter. ASSESSMENT & PLAN Impression: Right Hip Moderate Degenerative Osteoarthritis, Post-Traumatic Leg Length Discrepancy, Right Leg [place] than Left Long orthopedic history consisting a leg length discrepancy since . He has undergone multiple orthopedic surgeries. When he was in 6th grade he had a fall out of a tree and suffered an Achilles tendon rupture. He underwent repair at that time. While in rehab he complained of right hip pain and was found to have a missed femoral neck fracture. He underwent percutaneous fixation and later had removal of his hardware. He also describes that due to his limb length discrepancies he did have a plate placed in the contralateral (left) knee. He thinks that he was in seventh or eighth grade when this happened. He has also had a left knee scope procedure. Referred by Dr. Hart for Bilateral Hip Pain Pain location: Worst on the left hip laterally. He will also get pain down his thighs. Right hip pain will wake him up at night with pain - once in a while. Pain has been progressive over the past 5 years. They have seen surgerons 2 years ago and then decided against intervention at that time. They present today to reevaluate their options. He recently saw Dr. Hart in [place] [facility]. He referred to Dr. Gooden for discussion of possible hip resurfacing. He does wear a custom shoe for his limp length discrepancy which does help. Activities creating pain: Working, exercise, walking Therapy to date - Ice or Heat: ice, heat, soaking OTC/Rx Medications (Topical/PO): ibuprofen helps takes the edge off, tylenol Brace/Splint: none Assist Device: none Physical Therapy: none recently Injections: None in the past Surgery: Last hip surgery was 8 years ago on the right hip. Left hip - no surgeries. 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 He has 141 degree femoral neck angle on the left, 125 on the right. SS Sit - [address] - 41 deg KEMI/PT st - back 3 deg Summary: Howard is sent to me today for a hip resurfacing consult. Interestingly, all of his pain is on the LEFT side and is over the greater trochanteric bursitis. I do believe that this pain is large because of trochanteric bursitis. He has a completely benign right intra-articular hip exam. While he does have a cam lesion and clear varus in his neck with some subchondral sclerosis on the acetabular side, he has virtually no complaints historically or during his exam today regarding the right hip. Lying supine, he has at least a 3 cm limb length discrepancy, and his knee is at a different level on the right side as compared to the left. I believe that we probably can account for 7-10 mm of limb length discrepancy because of his varus neck, but I also believe that he has femoral length discrepancy as well. In my mind, we need to be objective about this, starting with mechanical axis views and the scanogram. I believe that an arthroplasty, whether a hip replacement or hip resurfacing, is not necessary given his lack of intra-articular symptoms and his young age of [age] years old. Rather, I think we should be exploring options surrounding limb lengthening. Today, this can be a minimally invasive approach with a magnetic growing nail, with a plan to lengthen him 80-100% of the delta difference. He does have a mild equinus contracture after multiple Achilles lengthenings on the right side, as well as varus neck. In order to prevent his toe from catching during swing through gait, as well as to account for the potential need of a hip replacement in the future that will not have a stem to match his extreme varus anatomy at present, I do not think lengthening him to the exact same length would make a lot of sense. This is an elective operation. I would rather have this done by one of my trauma partners who has trained in this technique. I will plan on getting him referred to Dr. Ac for a discussion. I spent a total of 45 minutes on the date of the service which included [id number] patient care, completing clinical documentation, obtaining and/or reviewing separately obtained history, performing a medically appropriate examination, counseling and educating the patient/family/caregiver, ordering medications, tests, or procedures, independently interpreting results (not separately reported), and communicating results to the patient/family/caregiver. The counseled portion is detailed in the plan, as above, that I have personally verified and edited as appropriate. Any information added by medical student, resident, nurse, NUCLEAR LICENSING ENGINEER/PAJerry that I have placed my signature directly below I have verified and either instructed them to document in a scribe function or document appropriately in the chart during the patient visit. Risk Factors for Total Knee Arthroplasty (TKA) Major Risk Factors Obesity Unknown Risk High: BMI > 40 Moderate: BMI 30-40 Normal: BMI < 30 Diabetes normal High: A1C > 8 Moderate: A1C 7-8 Normal: A1C < 7 Hx of DVT / PE normal High: dx of DVT / PE Normal: no dx of DVT / PE Smoking normal High: Current smoker Normal: Non smoker Narcotics Use normal High:NarxCare >=300 Moderate: 100-299 Normal: 0-99 Depression Unknown Risk High: PHQ-9 >14 Moderate: PHQ-9 5-14 Normal: PHQ-9 < 5 Area Deprivation Index (MARIANA) Moderate Risk High: MARIANA Score > 75 Moderate: MARIANA 50-75 Normal: MARIANA < 50 Obesity: height and/or weight are out of date (There is no height and/or weight reading in the past 365 days, so the below BMI readings may be inaccurate) BMI Readings from Last 3 Encounters: 02/05/24 : 28.19 kg/m Area Deprivation Index (MARIANA) 02/05/2024 MARIANA Score National Score 51 Patient Health Questionnaire (PHQ-9) No data to display (0-4) minimal depression, (5-9) mild depression, (10-14) moderate depression, (15-19) moderately severe depression, (20-27) severe depression Bone Density Risk Screen HOWARD AGUILAR is low risk for bone loss based on his age and having no previous diagnoses of osteopenia, osteoporosis, Paget's disease of bone, or cancer of bone. Other risk factors are listed below to determine if they pose a significant risk for bone loss, and if so, recommend ordering a bone densitometry and, upon receiving a result, as needed, order a consult to a bone health specialist (Rheumatology, Endocrinology, or Women's Health) for bone assessment. Risk Factors: Additional Risk Factors There is no problem list on file for this patient. SUBJECTIVE CHIEF COMPLAINT: Hip Pain HPI: HOWARD AGUILAR is a 23 year old patient with the presenting complaint of New, Pain, and Numbness of the Left Hip and New and Pain of the Right Hip. HOWARD AGUILAR has had progressive problems with the hip(s) a few times a day over the past 5+ year(s) interfering with activities which include walking 2 blocks, exercise, and rising from a sitting position. HOWARD reports a current pain level of 4 . He describes the pain as Aching. The pain is Intermittent, and has lasted for 1 Years. FALL RISK: HOWARD is not currently at risk for falls. FUNCTIONAL STATUS: Walk indoors, such as around the house (1.75 METs) Walk a block or two on level ground (2.75 METs) Participate in moderate recreational activities, such as golf, bowling, dancing, doubles tennis, or throwing a baseball or football (6.00 METs) REVIEW OF SYSTEMS: PAIN ASSESSMENT: See HPI. MUSCULOSKELETAL: See HPI. No data to display PAST MEDICAL HISTORY Diagnosis Date ADHD (attention deficit hyperactivity disorder) Autism PAST SURGICAL HISTORY Procedure Laterality Date PAST SURGICAL HISTORY OF Achilles tendon surgery in 2005 and 2012. PAST SURGICAL HISTORY OF 2014 Right hip ORIF PAST SURGICAL HISTORY OF Left knee ORIF. PAST SURGICAL HISTORY OF 2014 Right hip ORIF hardware removal PAST SURGICAL HISTORY OF 2016 Left knee plate PAST SURGICAL HISTORY OF 2018 Knee arthroscopy left FAMILY HISTORY Problem Relation Age of Onset Hypertension Mother Heart disease Father Hypertension Maternal Grandmother Heart disease Maternal Grandmother Cancer Maternal Grandmother Social History Tobacco Use Smoking status: Never ALLERGIES: Patient has no known allergies. MEDICATIONS: dextroamphetamine-amphetamine (ADDERALL XR) 30 mg 24 hr capsule Take 30 mg by mouth once daily. amoxicillin-clavulanate (AUGMENTIN) 250-62.5 mg/5 mL suspension Take 2 tsp 3x/day for 10 days OBJECTIVE PHYSICAL EXAM Ht 170.2 cm (5' 7) Wt 81.6 kg (180 lb) BMI 28.19 kg/m All other systems deferred. GENERAL: Appears healthy, well-nourished, no deformities. HABITUS: Normal GAIT: Hitched gait due to limb length discrepancy HIP EXAM: Limb lengths: [place] by 3-4 cm on the right Left: ROM: Extension: Normal Flexion: 110 degrees Internal Rotation: 30 degrees External Rotation: 30 degrees Abduction: 40 degrees Adduction: 30 degrees Strength: Abduction 5/5 and Flexion 5/5 Palpation: Slight tenderness to palpation of the greater trochanter Log roll: non-painful. Straight leg raise: Negative Neurovascular Status: Sensation Intact and Moves foot and ankle up & down Right: ROM: Extension: Normal Flexion: 85 degrees Internal Rotation: 10 degrees External Rotation: 20 degrees No pain with FADIR or FREDERICK Abduction: 40 degrees Adduction: 30 degrees Strength: Abduction 5/5 and Flexion 5/5 Palpation: No tenderness Log roll: non-painful. Straight leg raise: Negative Neurovascular Status: Sensation Intact and Moves foot and ankle up & down DATA: As above 04/30/2021 CT Hip Right: 1. Right femoral retroversion measuring approximate 25 degrees. 2. Right coxa vera with postoperative change with pin tracks present in patient with remote history of femoral neck fracture. Bony remodeling. There is loss of sphericity of the right femoral head superiorly on coronal imaging with suggestion of small CAM bump superiorly. However, on axial oblique imaging, alpha angle measures within normal limits. No definite CAM bump seen anteriorly. SIGNATURE: Sandra Gillette MD PATIENT NAME: HOWARD AGUILAR DATE: February 05, 2024 TIME: 10:05 AM documented in this encounter [facility] 02-05-2024 History of Present illness Narrative Radiology Service Progress Note PATIENT NAME: HOWARD AGUILAR DATE OF SERVICE: February 05, 2024 TIME: 9:21 AM PATIENT IDENTITY VERIFICATION COMPLETED USING TWO (2) IDENTIFIERS: Name and Date of confirmed by patient verbally. FALL SCREENING: Has the patient had 2 falls in the last year or 1 fall with injury or currently using an Ambulatory Assistive Device (Walker, Cane, Wheelchair, Crutches, etc.)? No PATIENT GENDER DATA: Male PATIENT RELEVANT IMPLANT DATA REVIEWED: Not Applicable PATIENT PRESENTS WITH AN IMPLANTABLE OR ATTACHED DIRECTOR CORRECTIONAL AGENCY: No RADIOLOGY DEPARTMENT: General X-ray: Exam(s) Completed: Pelvis X-Ray: Pelvis with Hip Bilateral and Wt. Bearing PERIPHERAL IV DATA: Not applicable SIGNED BY: RT Pawel(R) February 05, 2024 9:21 AM documented in this encounter [facility] 04-09-2021 History of Present illness Narrative I have seen and evaluated the patient myself and agree with above assessment and plan from [facility] and edits as needed, has a chronic leg length discrepancy with 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 Refer [facility] bambi discuss and will call office to [...] Social Gatherings with Friends and Family: Attends [employer] Services: Active Member of Clubs or Organizations: [...] Last 3 Encounters: 04/09/21 1.676 m (5' 6) There were no vitals filed for this [...] for now. Referral to Dr. Henriquez at [facility] to for discussion on femoral neck osteotomy [...] Left knee pain. documented in this encounter [facility] Evaluation note Diagnosis Right hip pain Pain in joint, pelvic region and thigh [facility] Diagnosis Right hip pain- Primary Pain in joint, pelvic region and thigh Right hip pain Pain in joint, pelvic region and thigh [facility] information available [facility] Work Phone: Evaluation note* Diagnosis Pain in right hip- Primary Pain in joint, pelvic region and thigh Pain in left hip Pain in joint, pelvic region and thigh [facility] Leg length discrepancy- Primary Unequal leg length (acquired) Leg length discrepancy Unequal leg length (acquired) [facility] Diagnosis Pain in right hip Pain in joint, pelvic region and thigh Pain in left hip Pain in joint, pelvic region and thigh [facility] Leg length discrepancy Unequal leg length (acquired) [facility] Diagnosis Leg length discrepancy- Primary Unequal leg length (acquired) [facility] [id number] male presenting with a chief complaint of right hip pain. This is a 21-year-old male who likely has a history of right hip slipped capital femoral epiphysis injury in the past. He has a shortened right limb. He has had persistent and consistent right sided hip and groin pain for severalyears. [place] was [place] in [place]. He has some evidenceof labral tearing on MRI. His pain is now gone to the point where it affects his daily living and activities on a daily basis and functional movements of his hip as well as walking. [id number] Work Phone: History of Present illness [id number] male presenting with a chief complaint of right hip pain. This is a 21-year-old male who likely has a history of right hip slipped capital femoral epiphysis injury in the past. He has a shortened right limb. He has had persistent and consistent right sided hip and groin pain for severalyears. He was evaluated in [place]. He has some evidenceof labral tearing on MRI. His pain is now gone to the point where it affects his daily living and activities on a daily basis and functional movements of his hip as well as walking.[id number] 210 Work Phone: [facility] for referral (narrative)* Consultation (Routine) - New Request Specialty Diagnoses / Procedures Referred By Rolf galvan Referred To Contact Orthopaedic Surgery Diagnoses Right hip pain Kiet Taylor MD [address] [place] [address] Referral ID Status Reason Start Date Expiration Date V isits Requested Visits Authorized [id number] New Request 04/09/2021 05/04/2022 1 1 * Diagnostic X-Ray (Routine) - New Request Specialty Diagnoses / Procedures Referred By Rolf galvan Referred To Contact Diagnoses Right hip pain Procedures XR HIP RIGHT 2 VIEWS Kiet Taylor MD [address] [place] [address] Referral ID Status Reason Start Date Expiration Date V isits Requested Visits Authorized [id number] New Request 04/04/2021 04/29/2022 1 1 [facility] for referral (narrative)* Diagnostic Procedure Only (Routine) - Authorized Specialty Diagnoses / Procedures Referred By Rolf galvan Referred To Contact XR IMAGING Diagnoses Pain in right hip Procedures XR HIP 2V AP/LAT RIGHT (AK,FL,ME,UN) RADEX HIP UNILATERAL WITH PELVIS 2-3 VIEWS Sandra Gillette MD [address] [place] [address] [place] [address] Referral ID Status Reason Start Date Expiration Date Visits Requested Visits Authorized [id number] Authorized Auto-Generat ed Referral 02/02/2024 03/03/2025 1 1 * Diagnostic Procedure Only (Routine) - Authorized Specialty Diagnoses / Procedures Referred By Contac t Referred To Contact XR IMAGING Diagnoses Pain in right hip Pain in left hip Procedures XR HIP BILATERAL 5V PEL/AP/LAT EACH HIP RADEX HIPS BILATERAL WITH PELVIS MINIMUM 5 VIEWS Sandra Gillette MD [address] [place] [address] [facility] [place] [address] Referral ID Status Reason Start Date Expiration Date Visits Requested Visits Authorized [id number] Authorized Auto-Generat ed Referral 02/02/2024 03/03/2025 1 1 [place] for referral (narrative)* Diagnostic Procedure Only (Routine) - Closed Specialty Diagnoses / Procedures Referred By Contac t Referred To Contact XR IMAGING Diagnoses Leg length discrepancy Procedures XR LEG FRONTAL HIP TO ANKLE MECHANICAL AXIS BONE LENGTH STUDIES Stephanie Rodriguez PA-C [address] [place] [address] [facility] [place] [address] Referral ID Status Reason Start Date Expiration Date V isits Requested Visits Authorized [id number] Closed Auto-Generate d Referral 02/05/2024 03/06/2025 1 1 * Diagnostic Procedure Only (Routine) - Closed Specialty Diagnoses / Procedures Referred By Contac t Referred To Contact XR IMAGING Diagnoses Leg length discrepancy Procedures XR LEG FRONTAL SCANOGRAM LENGTHS BONE LENGTH STUDIES Stephanie Rodriguez PA-C [address] [place] [phone] [place] [address] Referral ID Status Reason Start Date Expiration Date V isits Requested Visits Authorized [id number] Closed Auto-Generate d Referral 02/05/2024 03/06/2025 1 1 [place] for referral (narrative)* Diagnostic Procedure Only (Routine) - Closed Specialty Diagnoses / Procedures Referred By Contac t Referred To Contact XR IMAGING Diagnoses Pain in right hip Procedures XR HIP 2V AP/LAT RIGHT (AK,FL,ME,UN) RADEX HIP UNILATERAL WITH PELVIS 2-3 VIEWS Sandra Gillette MD [address] [place] [address] [facility] [place] [address] Referral ID Status Reason Start Date Expiration Date V isits Requested Visits Authorized [id number] Closed Auto-Generate d Referral 02/02/2024 03/03/2025 1 1 * Diagnostic Procedure Only (Routine) - Closed Specialty Diagnoses / Procedures Referred By Contac t Referred To Contact XR IMAGING Diagnoses Pain in right hip Pain in left hip Procedures XR HIP BILATERAL 5V PEL/AP/LAT EACH HIP RADEX HIPS BILATERAL WITH PELVIS MINIMUM 5 VIEWS Sandra Gillette MD [address] [place] [address] [facility] [place] [address] Referral ID Status Reason Start Date Expiration Date V isits Requested Visits Authorized [id number] Closed Auto-Generate d Referral 02/02/2024 03/03/2025 1 1 [place] for referral (narrative)* Diagnostic Procedure Only (Routine) - Closed Specialty Diagnoses / Procedures Referred By Contac t Referred To Contact XR IMAGING Diagnoses Leg length discrepancy Procedures XR LEG FRONTAL HIP TO ANKLE MECHANICAL AXIS BONE LENGTH STUDIES Stephanie Rodriguez PA-C [address] [place] [phone] [place] [address] Referral ID Status Reason Start Date Expiration Date V isits Requested Visits Authorized [id number] Closed Auto-Generate d Referral 02/05/2024 03/06/2025 1 1 * Diagnostic Procedure Only (Routine) - Closed Specialty Diagnoses / Procedures Referred By Contac t Referred To Contact XR IMAGING Diagnoses Leg length discrepancy Procedures XR LEG FRONTAL SCANOGRAM LENGTHS BONE LENGTH STUDIES Stephanie Rodriguez PA-C [address] [address] [place] [address] Referral ID Status Reason Start Date Expiration Date V isits Requested Visits Authorized [id number] Closed Auto-Generate d Referral 02/05/2024 03/06/2025 1 1 [facility] Summary Purpose Family History No Family History Records Found Relationship Condition Age at Onset Recorded Date/T jean father Congestive heart failure Unknown aunt Malignant neoplasm Unknown grandmother Rheumatoid arthritis Unknown Malignant neoplasm of breast Unknown mother Anxiety Unknown Advance Directives No Advanced Directives Records Found Advance Directive Response Recorded Date/ Time Living Will No April 08, 2019 6:25pm Power of Visual Effects Editor No April 08 9 6:25pm Advance Directive Response Recorded Date/ Time Living Will No April 08, 2019 5:25pm Power of Visual Effects Editor No April 08 9 5:25pm Reason for Referral Specialty Diagnoses / Procedures Referred By Rolf galvan Referred To Contact Diagnoses Right hip pain Procedures XR HIP RIGHT 2 VIEWS Kiet Taylor MD [address] [place] [address] Referral ID Status Reason Start Date Expiration Date V isits Requested Visits Authorized [id number] New Request 04/04/2021 04/29/2022 1 1 Chief Complaint and Reason for Visit Chief Complaint LABWORK Additional Source Comments (unrecognized sect ion and content) No Status Records FoundNo Status Records FoundNo Status Records FoundNo Status Records FoundNo Status Records FoundNo Status Records FoundNo Status Records FoundNo Status Records Found INFORMATION SOURCE (unrecogn ized section and content) DATE CREATED AUTHOR 05/20/2019 [facility] DATE CREATED AUTHOR AUTHOR'S ORGANIZ ATION 03/23/2021 [facility] DATE CREATED AUTHOR AUTHOR'S ORGANIZ ATION 03/28/2021 [facility] DATE CREATED AUTHOR AUTHOR'S ORGANIZ ATION 04/11/2021 [facility] DATE CREATED AUTHOR AUTHOR'S ORGANIZ ATION 05/04/2021 [facility] DATE CREATED AUTHOR AUTHOR'S ORGANIZ ATION 02/07/2024 [facility] DATE CREATED AUTHOR AUTHOR'S ORGANIZ ATION 03/08/2024 [facility] DATE CREATED AUTHOR AUTHOR'S ORGANIZ ATION 07/04/2025 [facility] Reason for Visit (unrecogniz ed section and content) Specialty Diagnoses / Procedures Referred By Contac t Referred To Contact Diagnoses Right hip pain Procedures XR HIP RIGHT 2 VIEWS Kiet Taylor MD [address] [place] [address] Referral ID Status Reason Start Date Expiration Date V isits Requested Visits Authorized [id number] New Request 04/04/2021 04/29/2022 1 1 Reason Comments Pain Right hip pain for m any years. Known leg length discrepancy. 6 months ago has gotten shoes to help correct this. Still with off/on lateral hip pain. Has completed PT in the past. Reason Comments New Pain Numbness Reason Comments Radio Gen A21 Specialty Diagnoses / Procedures Referred By Contac t Referred To Contact XR IMAGING Diagnoses Pain in right hip Pain in left hip Procedures XR HIP BILATERAL 5V PEL/AP/LAT EACH HIP RADEX HIPS BILATERAL WITH PELVIS MINIMUM 5 VIEWS Sandra Gillette MD [address] [place] [address] [facility] [place] [address] Referral ID Status Reason Start Date Expiration Date V isits Requested Visits Authorized [id number] Closed Auto-Generate d Referral 02/02/2024 03/03/2025 1 1 Specialty Diagnoses / Procedures Referred By Contac t Referred To Contact XR IMAGING Diagnoses Leg length discrepancy Procedures XR LEG FRONTAL HIP TO ANKLE MECHANICAL AXIS BONE LENGTH STUDIES Stephanie Rodriguez PA-C [address] [address] Xr Imaging [facility] Referral ID Status Reason Start Date Expiration Date V isits Requested Visits Authorized [id number] Closed Auto-Generate d Referral 02/05/2024 03/06/2025 1 1 Reason Comments Follow Up Care Teams (unrecognized sec tion and content) Land Acquisition Manager Relationship Specialty Start Date End Date Aicha Hightower DO [address] [place] [id number] PCP - General Family Medicine 03/27/21 Land Acquisition Manager Relationship Specialty Start Date End Date Aicha Hightower DO [address] [place] [address] PCP - General Family Medicine 03/27/21 Team Status: Active Member Role Status Dates Dr. Aicha Hightower DO Family Provider Active Dr. iAcha Hightower DO Primary Care Provider Active Team Status: Inactive Member Role Status Dates Dr. Aicha Hightower DO Primary Care Prov ider, Attending Provider, Referring Provider Active Team Status: Inactive Member Role Status Dates Dr. Aicha Hightower DO Primary Care Provider, Attendin g Provider Active Goals (unrecognized section and content) Goals may be documented in a n alternate sectionGoals may be documented in an alternate sectionGoals may be documented in an alternate sectionGoals may be documented in an alternate sectionGoals may be documented in an alternate section Source Comments (unrecognize d section and content) In the event this informatio n is protected by the Federal Confidentiality of Alcohol and Drug Abuse Patient Records regulations: The Federal rules restrict any use of the information to criminally investigate or prosecute any alcohol or drug abuse patient.[facility] the event this information is protected by the Federal Confidentiality of Alcohol and Drug Abuse Patient Records regulations: The Federal rules restrict any use of the information to criminally investigate or prosecute any alcohol or drug abuse patient.[facility] the event this information is protected by the Federal Confidentiality of Alcohol and Drug Abuse Patient Records regulations: The Federal rules restrict any use of the information to criminally investigate or prosecute any alcohol or drug abuse patient.[facility] the event this information is protected by the Federal Confidentiality of Alcohol and Drug Abuse Patient Records regulations: The Federal rules restrict any use of the information to criminally investigate or prosecute any alcohol or drug abuse patient.[facility] the event this information is protected by the Federal Confidentiality of Alcohol and Drug Abuse Patient Records regulations: The Federal rules restrict any use of the information to criminally investigate or prosecute any alcohol or drug abuse patient.[facility] FOR RECORDS PERTAINING TO PATIENTS WHO ARE [...] BE BASED ON THE PRIMARY CLINICAL RECORDS. [facility] [employer] [facility]. provides no warranty or guarantee of the accuracy or completeness of information in this document.
[2025-07-24 10:55] LABS: AST(SGOT) 20 U/L (<=37); Alanine Aminotransfer ALT/SGPT 20 U/L (<=46); Albumin, Serum 4.5 g/dL (3.5-5.0); Alkaline Phosphatase 63 U/L (40-129); Anion Gap 11 (5-15); BUN 15 mg/dL (4-19); BUN/Creat Ratio 17.0 RATIO (10-20); Calcium,Total 9.6 mg/dL (7.6-11.0); Carbon Dioxide 23.9 mmol/L (21.0-32.0); Chloride 107 mmol/L (98-108); Globulin 3.0 g/dL (2.2-4.2); Glucose 81 mg/dL (70-99); Potassium 4.2 mmol/L (3.3-5.1)
[2025-07-24 11:13] LABS: CRP < 3.00 mg/L (0.0-3.0)
== END | disposition home or self-care (01) ==
PROVIDERS: PCP Family Medicine; Referring Provider Family Medicine; Visit Provider Family Medicine
DX: Z00.00 Encounter for general adult medical examination without abnormal findings (principal); Z15.89 Genetic susceptibility to other disease
CPT/HCPCS: 36415; 80053; 83036; 85652; 86140